=== PATIENT | female | born 1940 | race Caucasian/White ===

== ENCOUNTER → 2018-04-24 15:40 | Outpatient (CLI) | payer MEDICARE, OTHER, SELFPAY ==
--- NOTE | 2018-04-24 15:29 | DI.REPORT_ITS ---
SYMPTOM/DIAGNOSIS: YEARLY LT TKA LEG LENGTH: The left leg measures 86.6 cm The right leg measures 86.1 cm. The patient is status post left TKR. There are rather severe degenerative changes involving the right knee.
--- NOTE | 2018-04-24 15:45 | DI.REPORT_ITS ---
SYMPTOM/DIAGNOSIS: YEARLY LT TKA LEFT KNEE: A single upright lateral projection of the left knee reveals a TKR. The components of which are in good position, surrounding bone intact. There are some faint areas of calcification posterior to the knee which could lie within a Handy's cyst. The study is otherwise unremarkable.
--- NOTE | 2018-04-24 19:05 | DI.REPORT_ITS ---
SYMPTOM/DIAGNOSIS: EVAL LUMBAR SPINE FOR STENOSIS, DJD LUMBOSACRAL SPINE: No abnormality involving L1 through L3 is demonstrated. There is disc space narrowing, discogenic sclerosis and hypertrophic spurring involving L3 through S1. At L3-4 there is a 1.5 cm anterior listhesis of L3 on L4 which is associated with degenerative changes. Narrow discs are noted at L4-5 and L5-S1 where there are moderately severe hypertrophic changes as well. The posterior elements as visualized appear intact. The sacrum and sacroiliac joints are unremarkable save for SI joint DJD. SUMMARY: Severe degenerative changes involving the mid and lower lumbar spine as described above. There is 1.5 cm anterior listhesis of L3 on L4 is associated with disc space narrowing and hypertrophic bony changes and is presumed to be on the basis of degenerative disease. As noted above there is disc narrowing and end plate sclerosis at L4 and L5. Please see the above report.
== END ==
PROVIDERS: PCP Internal Medicine; Visit Provider Student in an Organized Health Care Education/Training Program
DX: M48.062 Spinal stenosis, lumbar region with neurogenic claudication (principal); M51.17 Intervertebral disc disorders with radiculopathy, lumbosacral region; M51.16 Intervertebral disc disorders with radiculopathy, lumbar region; M43.16 Spondylolisthesis, lumbar region; Z96.652 Presence of left artificial knee joint
CPT/HCPCS: 72100; 73560; 77073; 20610; 99214; J1040

== ENCOUNTER → 2018-05-01 01:02 | Outpatient (CLI) | payer MEDICARE, OTHER, SELFPAY ==
--- NOTE | 2018-05-01 15:45 | DI.REPORT_ITS ---
SYMPTOM/DIAGNOSIS: EVAL SPINAL STENOSIS, SPINAL STENOSIS OF LUMBAR REGION M48.062 LUMBOSACRAL SPINE MRI : 05/01 MRI examination of the lumbosacral spine was performed according to the usual protocol. Note is made of a mild T-11 anterior compression fracture which is new since the previous lumbar spine MR of 07/14/15. Note is also made of anterior spondylolisthesis or pseudo spondylolisthesis of L3 on L4 which is more marked than on the previous examination with a new superior end plate deformity of L4 noted. Conus medullaris appears intact. There are multi-level facet hypertrophic changes throughout the lumbar region. There is neural foraminal narrowing at L3-4 on the left and there is neural foraminal narrowing at L3-4, L4-5 and L5-S1 on the right. There is degenerative disc and mild disc bulge at L5-S1. Central canal appears patent. Mild disc bulge also present at L4-5. Spinal anal appears patent. There is moderate central canal spinal stenosis at L3-4 and there is moderate central canal spinal stenosis at L2-3. There is a degree of spinal stenosis at L3-4 appears less severe in comparison with the previous examination of 07/14/15. No change at the remaining lumbar levels. CONCLUSION: Multi-level neural foraminal stenosis and central canal stenosis at L2-3 and L3-4 as described above. Please see the above discussion of findings at the individual levels.
== END ==
PROVIDERS: PCP Internal Medicine; Visit Provider Student in an Organized Health Care Education/Training Program
DX: M48.062 Spinal stenosis, lumbar region with neurogenic claudication (principal)
CPT/HCPCS: 72148

== ENCOUNTER → 2018-05-02 17:42 | Outpatient (REF) | payer MEDICARE, OTHER, SELFPAY ==
[2018-05-02 21:13] LABS: Anion Gap 6.7 mmol/L (3-11); BUN 22 mg/dL (7-18); CO2 30.3 mmol/L (21.0-32.0); CREATININE 1.53 mg/dL (0.55-1.02); Calcium 8.6 mg/dL (8.5-10.1); Chloride 103 mmol/L (98-107); Cholesterol 251 mg/dL (50-200); Glucose 103 mg/dL (70-100); HDL Cholesterol 104 mg/dL (40-60); LDL CHOLESTEROL 129 mg/dL (<100); Potassium 4.4 mmol/L (3.5-5.1); Sodium 140 mmol/L (136-145); Triglyceride 95 mg/dL (30-150)
== END ==
LOC: NCHCN 17:42
PROVIDERS: PCP Internal Medicine; Visit Provider Internal Medicine
DX: I10 Essential (primary) hypertension (principal)
CPT/HCPCS: 80048; 80061; 83721

== ENCOUNTER → 2018-05-08 15:30 | Outpatient (REF) | payer MEDICARE, OTHER, SELFPAY ==
[2018-05-13 17:52] LABS: 6-monoacetylmorphine Not Detected ng/mL (Cutoff: 25); Amphetamines Negative ng/mL (Cutoff: 500); Barbiturates Negative ng/mL (Cutoff: 200); Benzodiazepines Negative ng/mL (Cutoff: 100); Buprenorphine Not Detected ng/mL (Cutoff: 5); Cocaine Negative ng/mL (Cutoff: 150); Codeine Not Detected ng/mL (Cutoff: 25); Comment Normal; Creatinine, U 19.8 mg/dL; Dihydrocodeine Present ng/mL (Cutoff: 25); EDDP Not Detected ng/mL (Cutoff: 25); Fentanyl Not Detected ng/mL (Cutoff: 2); Hydrocodone Present ng/mL (Cutoff: 25); Hydromorphone Not Detected ng/mL (Cutoff: 25); Hydromorphone-3-beta-glucuroni Not Detected ng/mL (Cutoff: 100); Meperidine Not Detected ng/mL (Cutoff: 25); Methadone Not Detected ng/mL (Cutoff: 25); Morphine Not Detected ng/mL (Cutoff: 25); N-desmethyltapentadol Not Detected ng/mL (Cutoff: 50); Naloxone Not Detected ng/mL (Cutoff: 25); Norbuprenorphine Not Detected ng/mL (Cutoff: 5); Norfentanyl Not Detected ng/mL (Cutoff: 2); Norhydrocodone Present ng/mL (Cutoff: 25); Normeperidine Not Detected ng/mL (Cutoff: 25); Noroxycodone Not Detected ng/mL (Cutoff: 25); Noroxymorphone Not Detected ng/mL (Cutoff: 25); O-desmethyltramadol Not Detected ng/mL (Cutoff: 25); Phencyclidine Negative ng/mL (Cutoff: 25); Propoxyphene Not Detected ng/mL (Cutoff: 25); Specific Gravity 1.003; Tapentadol Not Detected ng/mL (Cutoff: 25); Tetrahydrocannabinol Negative ng/mL (Cutoff: 50); Tramadol Not Detected ng/mL (Cutoff: 25); pH 7.4
== END ==
LOC: LBN 15:30
PROVIDERS: PCP Internal Medicine; Visit Provider Nurse Practitioner Family
DX: Z79.891 Long term (current) use of opiate analgesic (principal); M51.15 Intervertebral disc disorders with radiculopathy, thoracolumbar region
CPT/HCPCS: 80307; 80364

== ENCOUNTER 2018-05-15 02:45 | Outpatient (RCR) | payer MEDICARE, OTHER, SELFPAY | END 2018-05-17 02:45 | LOC: INF 02:45 | PROVIDERS: PCP Internal Medicine; Visit Provider Internal Medicine | DX: M81.0 Age-related osteoporosis without current pathological fracture (principal) ==

== ENCOUNTER 2018-05-24 02:30 | Outpatient (RCR) | payer MEDICARE, OTHER, SELFPAY ==
[2018-05-24] MEDS: Normal Saline Flush 10 ML SYR IVP (13:31)
== END 2018-06-16 23:59 | disposition home or self-care (01) ==
LOC: INF 02:30
PROVIDERS: PCP Internal Medicine; Visit Provider Internal Medicine
DX: M81.0 Age-related osteoporosis without current pathological fracture (principal)
CPT/HCPCS: 96365; J3489

== ENCOUNTER 2018-06-17 15:31 | Outpatient (CLI) | payer MEDICARE, OTHER, SELFPAY ==
--- NOTE | 2018-06-17 14:23 | DI.RAD_ITS ---
SYMPTOM/DIAGNOSIS: SCIATICA M54.30 LUMBOSACRAL SPINE: 06/17 Five views were obtained. There is moderate anterior compression fracture of T-11 vertebra with little interval change in appearance in comparison with previous lumbar MRI of 2017 This was also visible on plain films of 04/24/2018. T-9 compression fracture also appears to be present which was seen on Dexa scan of 2016. Note is again made of pseudo spondylolisthesis of L3 on L4 and of marked disc space narrowing of L3-4 , L4-5 and and L5-S1. CONCLUSION: No gross interval change in T-11 compression fracture.
== END 2018-06-17 15:51 ==
PROVIDERS: PCP Internal Medicine; Visit Provider Nurse Practitioner Family
DX: M54.30 Sciatica, unspecified side (principal); M48.54XD Collapsed vertebra, not elsewhere classified, thoracic region, subsequent encounter for fracture with routine healing; M51.36 Other intervertebral disc degeneration, lumbar region
CPT/HCPCS: 72110

== ENCOUNTER 2018-07-04 09:50 | Outpatient (CLI) | payer MEDICARE, OTHER, SELFPAY ==
--- NOTE | 2018-07-04 06:00 | DI.RAD_ITS ---
SYMPTOMS/DIAGNOSIS: LUMBAR RADICULOPATHY, LUMBAR EPIDURAL STEROID INJECTION PAIN CLINIC: Fluoroscopy Time: 25.8 sec Images submitted from the pain clinic demonstrate needle positioning over the right paramedian position over the mid body on the frontal projection and mid sacrum on the lateral image in conjunction with epidural steroid injection carried out by Dr. Hidalgo. Please see the procedure report for further information.
[2018-07-04 10:08] VITALS: BP 137/59; PULSE 62; RESP 18; TEMP 36.3; O2SAT 95
--- NOTE | 2018-07-04 10:48 | PDOC.PAIN_ITS ---
Pain Clinic Procedure Note Current Active Problems Problem Status Onset Lumbar radiculopathy Acute CAUDAL EPIDURAL STEROID WITH CATHETER INJECTION PROCEDURE NOTE COMMENTS: Caudal approach used as she has has previous lumbar spine surgery. CLEMENT BOURNE has been referred to the [facility] for lumbar epidural steroid injection. Patient was greeted by the nurse who verified patients name and . Patient was then taken to the fluoroscopy suite. Patient was interviewed and the medical record reviewed. There were no medical , pharmacologic, radiographic, or other structural contraindications to attempting fluoroscopically guided lumbar epidural steroid injection. Risks and expected side effects as well as potential benefits of the procedure were reviewed and voiced concerns addressed. The patient consent form was signed and witnessed. Standard time-out procedure was performed. Patient was placed in the prone position on the fluoroscopy table and automated blood pressure cuff and pulse oximeter applied. The skin entry point for entering/approaching the epidural space by a sacral hiatus and marked. Following thorough chlorhexadine preparation of the skin and draping and 1% lidocaine infiltration of the skin entry point and subcutaneous tissues, a 17 gauge Touhy needle was placed under fluoroscopic guidance and with loss of resistance technique into the epidural space. Needle tip placement and depth were aided and confirmed by fluoroscopy. There was no paresthesia or return of blood or CSF through the needle. An Arrow cath was thread to the L4-L5 interspace and 1 cc's of Omnipaque 240 was injected with clear epidural spread confirmed with fluoroscopy. 80mg depomedrol was injected. There was not any unusual discomfort expressed. Vital signs were stable throughout the procedure and were as recorded in nursing records. Follow up plans and appointments were discussed.Post procedure instruction was given as documented in nursing records and having met discharge criteria and was discharged from the [facility]. COMMENTS: She can have this procedure completed up to 3 times per 12 months if it is found to be effective. Justus Hidalgo DO, MPH [facility] - Subspecialty Board Certification in Pain Medicine
[2018-07-04 10:52] VITALS: BP 153/76; PULSE 66; RESP 20; O2SAT 95
[2018-07-04] MEDS: Omnipaque 240 MG/ML 50 ML BTL IJ (10:58)
[2018-07-04] MEDS: methylPREDNISolone ACETATE 80 MG/ML VIAL IJ (10:59)
== END 2018-07-04 10:10 ==
PROVIDERS: PCP Internal Medicine; Visit Provider Preventive Medicine Occupational Medicine
DX: M54.16 Radiculopathy, lumbar region (principal)
CPT/HCPCS: 62323; 72100; J1040; Q9967

== ENCOUNTER 2018-08-21 13:21 | Outpatient (CLI) | payer MEDICARE, OTHER, SELFPAY | END 2018-08-21 13:41 | PROVIDERS: PCP Internal Medicine; Referring Provider Internal Medicine; Visit Provider Student in an Organized Health Care Education/Training Program | DX: T84.84XA Pain due to internal orthopedic prosthetic devices, implants and grafts, initial encounter (principal); Z96.652 Presence of left artificial knee joint; Z53.8 Procedure and treatment not carried out for other reasons; M48.061 Spinal stenosis, lumbar region without neurogenic claudication; M17.11 Unilateral primary osteoarthritis, right knee; I12.9 Hypertensive chronic kidney disease with stage 1 through stage 4 chronic kidney disease, or unspecified chronic kidney disease; N18.3 Chronic kidney disease, stage 3 (moderate) | CPT/HCPCS: 20610; 73562; 99214; J1040 ==

== ENCOUNTER 2018-10-02 13:46 | Outpatient (CLI) | payer MEDICARE, OTHER, SELFPAY ==
--- NOTE | 2018-10-02 13:38 | DI.RAD_ITS ---
SYMPTOMS/DIAGNOSIS: S/P TKA RIGHT KNEE: The wounds appear osteopenic. There is moderate narrowing of the medial femorotibial joint space. Chondrocalcinosis is seen. There is mild periarticular spurrnig, greatest medially. There is mild spurring of the patellofemoral joint. No joint effusion is visible. IMPRESSION: Moderate degenerative changes, greatest of the medial femorotibial joint. Chondrocalcinosis. LEFT KNEE: Comparison is made with April,. A left total knee prosthesis is again noted. No abnormal bony lucencies are seen. Calcifications are again noted in the posterior soft tissues.
== END 2018-10-02 14:06 ==
PROVIDERS: PCP Internal Medicine; Referring Provider Internal Medicine; Visit Provider Student in an Organized Health Care Education/Training Program
DX: T84.84XA Pain due to internal orthopedic prosthetic devices, implants and grafts, initial encounter (principal); Z96.652 Presence of left artificial knee joint; M25.561 Pain in right knee; M17.11 Unilateral primary osteoarthritis, right knee; M85.88 Other specified disorders of bone density and structure, other site; M70.52 Other bursitis of knee, left knee; I12.9 Hypertensive chronic kidney disease with stage 1 through stage 4 chronic kidney disease, or unspecified chronic kidney disease; N18.3 Chronic kidney disease, stage 3 (moderate)
CPT/HCPCS: 20610; 73562; 99213; 73560; J1030

== ENCOUNTER → 2018-11-06 13:54 | Outpatient (BNVA) | payer MEDICARE, OTHER, SELFPAY | PROVIDERS: PCP Internal Medicine; Referring Provider Internal Medicine; Visit Provider Student in an Organized Health Care Education/Training Program | DX: M17.12 Unilateral primary osteoarthritis, left knee; M06.9 Rheumatoid arthritis, unspecified; I12.9 Hypertensive chronic kidney disease with stage 1 through stage 4 chronic kidney disease, or unspecified chronic kidney disease; N18.3 Chronic kidney disease, stage 3 (moderate) | CPT/HCPCS: 99213 ==

== ENCOUNTER 2018-11-12 13:07 | Outpatient (CLI) | payer MEDICARE, OTHER, SELFPAY ==
--- NOTE | 2018-11-12 06:00 | DI.RAD_ITS ---
SYMPTOMS/DIAGNOSIS: LUMBAR SPONDYLOSIS PAIN CLINIC LUMBAR SPINE: Fluoroscopy Time: 50.55 sec Fluoroscopy is utilized by Dr. Hidalgo during the performance of a lumbar medial branch block. Please refer to the procedure report for complete details.
[2018-11-12 13:25] VITALS: BP 103/68; PULSE 64; RESP 22; TEMP 36.1; O2SAT 94
--- NOTE | 2018-11-12 14:24 | PDOC.PAIN ---
Pain Clinic Procedure Note Current Active Problems Problem Status Onset Lumbosacral spondylosis without myelopathy Acute Lumbar/Sacral Medial Branch Blocks CLEMENT BOURNE has been referred to the [facility] for lumbar/sacral medial branch blocks. COMMENTS: She was seen in our clinic on 10/29/18 Patient was interviewed and the medical record reviewed. There were no medical, pharmacologic, radiographic or other structural contraindications to attempting fluoroscopically guided local anesthetic lumbar/sacral medial branch blocks. Risks and expected side effects as well as potential benefit of the procedure were reviewed and voiced concerns addressed. The printed consent form was signed and witnessed. Standard time-out procedure was performed. Patient was placed in the prone position on the fluoroscopy table and automated blood pressure cuff and pulse oximeter applied. The skin entry points for approaching the anatomic target points of the segmental medial branches of bilateral L3-L5DR were identified with anfluoroscopy and marked. Following thorough Chlorhexadine preparation of the skin and draping a 25 gauge 3.5 spinal needle was placed under fluoroscopic guidance down on to the target point for each respective segmental medial branch.Position was confirmed in A/P, oblique and lateral views with 0.25ml of omnipaque 240. At this point 0.5 cc of l 0.5% Bupivacaine was injected to each segmental nerve. Vital signs were stable throughout the procedure and were as recorded in the docflowsheet by the nursing staff. Follow up plans and appointments were discussed and was instructed to keep careful note of how the usual pain was modified by these injections. Specifically was asked to keep a pain diary for the next 24 hours using a numeric pain scale of 0-10 and report these results at the follow-up visit. Post procedure instruction was given as documented in the nursing documentation and having met discharge criteria. Patient was discharged from the [facility]. Based on the medial branches blocked today, if the patient has adequate relief and we are able to proceed to radiofrequency ablation, the treatment should result in the denervation of the bilateral L4-L5 and L5-S1 FACET JOINTS. We would expect to denervate a total of 4 facets during the radiofrequency ablation. COMMENTS:She will call back with her 1-4 hour post-procedure low back pain scores. CC: Jefry Boyer
[2018-11-12 14:46] VITALS: BP 121/63; PULSE 78; RESP 14; O2SAT 95
[2018-11-12] MEDS: Omnipaque 240 MG/ML 50 ML BTL IJ (14:48)
[2018-11-12] MEDS: Bupivacaine 0.5% Pres-Free 30 ML VIAL IJ (14:48)
== END 2018-11-12 13:27 ==
PROVIDERS: PCP Internal Medicine; Visit Provider Preventive Medicine Occupational Medicine
DX: M47.817 Spondylosis without myelopathy or radiculopathy, lumbosacral region (principal)
CPT/HCPCS: 64493; 64494; 72100; Q9967

== ENCOUNTER 2018-11-20 13:18 | Outpatient (CLI) | payer MEDICARE, OTHER, SELFPAY ==
--- NOTE | 2018-11-20 06:00 | DI.RAD_ITS ---
SYMPTOMS/DIAGNOSIS: LUMBAR SPONDYLOSIS PAIN CLINIC: Fluoroscopy Time: 52.2 sec Fluoroscopy was utilized by Dr. Hidalgo during the performance of a lumbar medial branch block. Please refer to the procedure report for complete details.
[2018-11-20 13:30] VITALS: BP 135/71; PULSE 70; RESP 16; TEMP 36.8; O2SAT 99
--- NOTE | 2018-11-20 14:02 | PDOC.PAIN ---
Pain Clinic Procedure Note Current Active Problems Problem Status Onset Lumbosacral spondylosis without myelopathy Acute Lumbar/Sacral Medial Branch Blocks #2 at Bilateral L3-L5DR CLEMENT BOURNE has been referred to the [facility] for lumbar/sacral medial branch blocks. COMMENTS: She did very well with her first set of blocks. Patient was interviewed and the medical record reviewed. There were no medical, pharmacologic, radiographic or other structural contraindications to attempting fluoroscopically guided local anesthetic lumbar/sacral medial branch blocks. Risks and expected side effects as well as potential benefit of the procedure were reviewed and voiced concerns addressed. The printed consent form was signed and witnessed. Standard time-out procedure was performed. Patient was placed in the prone position on the fluoroscopy table and automated blood pressure cuff and pulse oximeter applied. The skin entry points for approaching the anatomic target points of the segmental medial branches of bilateral L3-L5DR were identified with anfluoroscopy and marked. Following thorough Chlorhexadine preparation of the skin and draping and 1% lidocaine infiltration of the skin entry points and subcutaneous tissues, a 25 gauge 3.5 spinal needle was placed under fluoroscopic guidance down on to the target point for each respective segmental medial branch.Position was confirmed in A/P, oblique and lateral views with 0.25ml of omnipaque 240. At this point 0.5cc of 2% Lidocaine was injected at each segmental nerve. The needles were removed without difficulty. Vital signs were stable throughout the procedure and were as recorded in the docflowsheet by the nursing staff. Follow up plans and appointments were discussed and was instructed to keep careful note of how the usual pain was modified by these injections. Specifically was asked to keep a pain diary for the next 24 hours using a numeric pain scale of 0-10 and report these results at the follow-up visit. Post procedure instruction was given as documented in the nursing documentation and having met discharge criteria. Patient was discharged from the [facility]. Based on the medial branches blocked today, if the patient has adequate relief and we are able to proceed to radiofrequency ablation, the treatment should result in the denervation of the bilateral L4-L5 and L5-S1 FACET JOINTS. We would expect to denervate a total of 4 facets during the radiofrequency ablation. COMMENTS:She will call back with her 1-4 hour post-procedure low back pain levels. CC: Jefry Boyer
[2018-11-20] MEDS: Lidocaine 2% Pres-Free 5 ML VIAL IJ (14:27)
[2018-11-20] MEDS: Omnipaque 240 MG/ML 50 ML BTL IJ (14:28)
[2018-11-20 14:29] VITALS: BP 146/69; PULSE 72; RESP 20; O2SAT 96
== END 2018-11-20 13:38 ==
PROVIDERS: PCP Internal Medicine; Visit Provider Preventive Medicine Occupational Medicine
DX: M47.817 Spondylosis without myelopathy or radiculopathy, lumbosacral region (principal)
CPT/HCPCS: 64493; 64494; 72100; Q9967

== ENCOUNTER → 2018-12-04 13:39 | Outpatient (BNVA) | payer MEDICARE, OTHER, SELFPAY | PROVIDERS: PCP Internal Medicine; Referring Provider Internal Medicine; Visit Provider Student in an Organized Health Care Education/Training Program | DX: M54.9 Dorsalgia, unspecified; R52 Pain, unspecified | CPT/HCPCS: 99212 ==

== ENCOUNTER 2018-12-12 07:42 | Outpatient (CLI) | payer MEDICARE, OTHER, SELFPAY ==
[2018-12-12 07:54] VITALS: BP 135/74; PULSE 66; RESP 22; TEMP 36.2; O2SAT 98
[2018-12-12] MEDS: fentaNYL 100 MCG/2 ML VIAL IVP (08:29)
[2018-12-12] MEDS: Lactated Ringers 1,000 ML 80 ML IV (08:29)
[2018-12-12] MEDS: Midazolam 2 MG/2 ML VIAL IVP (08:29)
[2018-12-12 09:03] VITALS: BP 146/74; PULSE 76; RESP 13; O2SAT 100
--- NOTE | 2018-12-12 09:08 | DI.RAD_ITS ---
SYMPTOM/DIAGNOSIS: LUMBAR SPONDYLOSIS, LUMBAR RADIOFREQUENCY ABLATION C-ARM: Fluoroscopy Time: 72.3 sec, 15.66 mGy. Images submitted from the pain clinic needle positioning over the lateral portion of the right L 4 and L 5 levels in conjunction with a radiofrequency ablation. Please see Dr. Hidalgo's procedure report for further information.
--- NOTE | 2018-12-12 09:10 | PDOC.PAIN_ITS ---
Pain Clinic Procedure Note Current Active Problems Problem Status Onset Lumbosacral spondylosis without myelopathy Acute LUMBAR/SACRAL MEDIAL BRANCH RADIOFREQUENCY WITH THE COOLIEF MACHINE CLEMENT BOURNE has been referred to the [facility] for radiofrequency treatment of chronic axial back pain. CLEMENT has had long standing back pain thought to be facet joint generated and which has been refractory to other therapies. Local anesthetic medial branch blocks or intra- articular facet joint injections resulted in CLEMENT reporting reduction of the usual axial component of pain for at least the duration of the local anesthetic effect. COMMENTS:She did very well with her LMBBs Patient was interviewed and the medical record reviewed. There were no medical, pharmacologic, radiographic or other structural contraindications to attempting fluoroscopically guided radiofrequency treatment. Risks and expected side effects as well as potential benefit of the procedure were reviewed and voiced concerns addressed. The printed consent form was signed and witnessed. Standard time-out procedure was performed. Patient was placed in the prone position on the fluoroscopy table and automated blood pressure cuff and pulse oximeter applied. The skin entry points for approaching the anatomic target points of the segmental medial branches of bilateral L3-L5DR were identified with fluoroscopy and marked. Following thorough Chlorhexadine preparation of the skin and draping and 1% lidocaine infiltration of the skin entry points and subcutaneous tissues, a single 18 guage curved 10 cm 10mm active tip radiofrequency cannula was placed under fluoroscopic guidance along or across the anatomic course of each respective segmental medial branch. Each placement was stimulated at 50Hz and les then 0.5V for medial branch sensory localization and the at 2Hz and up to 3 times the sensory voltage without any evidence of distal myotomal stimulation. 1cc of 1% ;idocaine was injected at each site. At each placement a continuous mode radiofrequency treatment was done at 80 degrees C for 90secs. This radiofrequency treatment should result in the denervation of the bilateral L4-L5 and L5-S1 FACET JOINTS.~ A total of 4 facets were expected to be denervated from today's treatment. Vital signs were stable throughout the procedure and were as recorded in the docflowsheet by the nursing staff. If given, dosages of intravenous drugs for anxiolysis and analgesia were documented in the Medication Administration Record (MAR). Follow up plans and appointments were discussed. Post procedure instruction was given as documented in the nursing documentation and having met discharge criteria, CLEMENT was discharged from the [facility]. COMMENTS: If this procedure gives her at least 6 months of pain relief, it can be repeated when needed. CC: Jefry Boyer
[2018-12-12] MEDS: methylPREDNISolone ACETATE 40 MG/ML VIAL IJ (09:23)
[2018-12-12] MEDS: Lidocaine 2% Pres-Free 5 ML VIAL IJ (09:23)
[2018-12-12] MEDS: Bupivacaine 0.5% Pres-Free 10 ML VIAL IJ (09:24)
== END 2018-12-13 11:25 | disposition home or self-care (01) ==
LOC: PC 07:44
PROVIDERS: PCP Internal Medicine; Visit Provider Preventive Medicine Occupational Medicine
DX: M47.817 Spondylosis without myelopathy or radiculopathy, lumbosacral region (principal); G89.29 Other chronic pain
CPT/HCPCS: 64636 ×2; 64635 ×2; 72100; J1030; J2250; J3010

== ENCOUNTER 2019-01-16 16:12 | Outpatient (REF) | payer MEDICARE, OTHER, SELFPAY ==
[2019-01-16 21:10] LABS: Potassium 4.6 mmol/L (3.5-5.1)
== END 2019-01-16 16:32 ==
LOC: NCHCN 16:12
PROVIDERS: PCP Internal Medicine; Visit Provider Internal Medicine
DX: M79.10 Myalgia, unspecified site (principal); F41.8 Other specified anxiety disorders; R53.83 Other fatigue; L57.0 Actinic keratosis; Z86.39 Personal history of other endocrine, nutritional and metabolic disease
CPT/HCPCS: 84132

== ENCOUNTER 2019-01-19 11:43 | Emergency (ER) | payer MEDICARE, OTHER, SELFPAY ==
--- NOTE | 2019-01-19 11:55 | W.ED.GENAD ---
Discharge Plan Disposition Patient Disposition: HOME Condition: Fair Discharge Details Chief Complaint: Orthopedic Clinical Impression: Hematoma, Multiple contusions Primary Care Provider: Jefry Boyer ED Provider: Elly Dior Home Meds and New Rx's Prescriptions: Continued prednisone 5 MG tablet 2 tab PO DAILY RF: 0 omeprazole 20 MG capsule,delayed release(DR/EC) 20 mg PO DAILY RF: 0 ergocalciferol (vitamin D2) [Vitamin D2] 50,000 UNIT capsule 50,000 unit PO weekly RF: 0 fluticasone propionate 16 GM spray,suspension 2 spry NS DAILY RF: 0 Narcan 4 MG spray,non-aerosol 4 mg NS PRN PRNQty: 2 RF: 0 Cane Qty: 1 RF: 0 potassium chloride 10 MEQ capsule, extended release 10 meq PO DAILY RF: 0 acetaminophen [Tylenol Extra Strength] 500 MG tablet 500 mg PO Q4H PRN RF: 0 magnesium oxide 250 MG tablet 250 mg PO DAILY RF: 0 hydrocodone-acetaminophen 1 EACH tablet 1 tab-cap PO Q4H PRN MDD 5 RF: 0 gabapentin 300 MG capsule 300 mg PO BID RF: 0 paroxetine HCl 40 MG tablet 40 mg PO DAILY RF: 0 Metoprolol Succinate 25 MG TAB.ER.24H 50 mg PO DAILY RF: 0 spironolactone 25 MG tablet 25 mg PO DAILY RF: 0 aspirin 81 mg Tablet,Chewable 81 mg PO DAILY RF: 0 Discharge Instructions Instructions: Contusion in Adults (ED), Hematoma (ED) Additional Instructions: Encourage rest, ice, elevation. Tylenol as needed for discomfort. Please follow-up with primary care this week for reevaluation. Please continue to use Bulmaro wrap to your right lower extremity to help with swelling. If you develop redness, warmth, increased pain, fever/chills, pain in the back of your leg, shortness of breath, chest pain or other new/worsening symptoms please seek care urgently once again. Referrals: Jefry Boyer MD [Primary Care Provider] - Discharge Data Discharge Date/Time-TO BE ENTERED AT DEPARTURE: 01/19/19 15:11 Medical Decision Making Patient is a 78-year-old female with history of arthralgia, bursitis, lumbosacral spondylosis, spinal stenosis, OA, anxiety, alcohol abuse, breast cancer, hypertension, GERD, CKD. She is brought in today by her for evaluation of her bilateral knees. She reports that she tripped yesterday while ambulating at the house and fell landing on both of her knees. She denies other injuries. No headache, visual change. No nausea vomiting. No chest pain or shortness of breath. Denies any neck or back pain. Pain does not radiate. She reports minimal pain and 0 right now. She does endorse some discomfort particular with ambulation. She is noted ecchymosis to bilateral anterior knees, right greater than left with swelling along the anterior lateral right tibia. No erythema or warmth. Calves are soft and nontender. She has a 2+ distal pulses. Patient reports she is been ambulating about the house and is been quite busy today. States that the swelling overall has diminished. I have low suspicion for fracture but given her concern with the ecchymosis, will obtain imaging to evaluate for possible bony abnormality. Patient does have a well-healed incision on the left knee consistent with her history of total knee replacement. She has chronic swelling of the bilateral lower extremities particularly the right ankle which patient reports unchanged. No pain with palpation about the ankle, she reports her ankle is chronic and unchanged since the fall. No evidence of compartment syndrome at this time. XR reviewed by myself with no acute abnormality noted. Do not see any lucency around the implant on the left knee. OA noted on the right. No acute abnormality. seen. FINDINGS left: Prior knee arthroplasty. No acute fracture. No abnormal fluid collection. IMPRESSION: No evidence of acute bony abnormality. FINDINGS right: Inhomogeneity most likely representing diffuse osteopenia. No acute fracture. Degenerative arthritis with joint space narrowing and mild osteophytic spurring. No evidence of significant joint effusion. IMPRESSION: No evidence of acute bony normality. Discussed these findigns with the patient and her . There was a delay in the patient receiving her imaging secondary to influx of patients. During this time, she has been ambulatory, has been comfortable with no change in symptoms. She will be fitted with bulmaro wrap by nursing staff for the swelling and hematoma on the left anterior left. We discussed signs of infection and other new/worsening symptoms that should prompt urgent eval again. She will rest, ice, elevate. Will f/u with PCP in one week for reevaluation. All of her questions and concerns were addressed, she isin agreement with this plan HPI General Mode of arrival: wheelchair. Date/Time Provider Initiated Documentation: 01/19/19 11:54. Limitations to Documentation: no limitations. Information obtained by: patient, family and RN notes reviewed. History of Present Illness 78 year old F presents to the emergency department with the chief complaint of bilateral knee trauma, described as mild, Quality is described as aching, and is localized to the left, right and lower extremity. Patient reports no radiation. Patient started experiencing this day(s) (1) and it has been constant. Immobilization improves symptom(s), Movement worsens symptoms (worse with ambulation) . Patient notes no other symptoms.. Patient did receive the following treatments prior to arrival, other (patient on chronic pain medication) Related Data Home Medications Medication Instructions Recorded Confirmed omeprazole 20 mg PO DAILY tab-cap 09/30/13 12/12/18 prednisone 2 tab PO DAILY tab-cap 09/30/13 12/12/18 ergocalciferol (vitamin D2) 50,000 unit PO weekly 11/27/16 01/19/19 [Vitamin D2] fluticasone propionate 2 spry NS DAILY spray 11/27/16 01/19/19 Narcan 4 mg NS PRN PRN #2 inhn 06/10/17 01/19/19 spironolactone 25 mg PO DAILY tab 06/11/17 01/19/19 acetaminophen [Tylenol Extra 500 mg PO Q4H PRN 04/26/18 01/19/19 Strength] magnesium oxide 250 mg PO DAILY 04/26/18 01/19/19 potassium chloride 10 meq PO DAILY 04/26/18 12/12/18 Metoprolol Succinate 50 mg PO DAILY tab-cap 05/06/18 01/19/19 gabapentin 300 mg PO BID 05/06/18 01/19/19 hydrocodone-acetaminophen 1 tab-cap PO Q4H PRN tab-cap MDD 5 05/06/18 01/19/19 paroxetine HCl 40 mg PO DAILY 05/06/18 01/19/19 aspirin 81 mg PO DAILY 11/12/18 01/19/19 Previous Rx's Medication Instructions Recorded spironolactone 25 mg PO DAILY tab 06/11/17 Allergies Allergy/AdvReac Type Severity Reaction Status Date / Time latex Allergy Severe SWELLING/RA Verified 01/19/19 12:03 SH bupropion Allergy Unknown Verified 01/19/19 12:03 sertraline HCl [From Zoloft] Allergy Unknown Verified 01/19/19 12:03 tramadol Allergy Unknown Verified 01/19/19 12:03 alendronate sodium AdvReac Intermediate Verified 01/19/19 12:03 Sulfa (Sulfonamide AdvReac Intermediate STOMACH Verified 01/19/19 12:03 Antibiotics) UPSET citalopram hydrobromide AdvReac Mild Verified 01/19/19 12:03 [From Celexa] flunisolide AdvReac Mild Verified 01/19/19 12:03 sulfasalazine AdvReac Mild Verified 01/19/19 12:03 [From Azulfidine] DAIRY PRODUCT AdvReac Intermediate STOMACH Uncoded 01/19/19 12:03 UPSET Review of Systems Constitutional Reports as per HPI, Denies chills, Denies fever(s), Denies headache(s) and Denies weakness ENT Denies headache(s) Cardiovascular Reports as per HPI, Denies chest pain, Denies chest pain at rest, Denies chest pain with activity and Denies dyspnea Respiratory Reports as per HPI, Denies cough and Denies dyspnea Musculoskeletal Reports as per HPI and Denies tingling Integumentary/Breasts Reports as per HPI (ecchymosis bilateral lower extremities) Neurologic Reports as per HPI, Denies headache(s), Denies tingling, Denies paresthesias and Denies weakness [facility] Medical History Actinic keratoses Alcohol abuse, in remission Atrial paroxysmal tachycardia BREAST CANCER BREAST IMPLANTS Bilateral cataracts Bilateral leg edema CKD (chronic kidney disease), stage III Calcium pyrophosphate deposition disease DENTURES Depressive disorder Fatigue Frequent PVCs GERD (gastroesophageal reflux disease) Glossodynia HTN (hypertension) HX: breast cancer History of colitis Hot flashes Hypomagnesemia IBS (irritable colon syndrome) Insomnia 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 Brother No problems noted. Social History Smoking/Tobacco Use Status: Never Alcohol Intake: current Alcohol Intake frequency: 0-2 drinks per day Alcohol type: wine Drug use: Never Substance use type: does not use Do you feel safe in your relationship?: Yes Exam Const General: cooperative, healthy appearing, comfortable, no acute distress, well developed and well groomed Nutritional Appearance: well nourished, overweight and edematous (bilateral lower extremities) Orientation: alert and awake [facility] Head: normal to inspection, no palpable skull fracture, normocephalic and atraumatic Ears: hearing grossly normal bilaterally Face and sinus: normal facial exam Resp Effort & Inspection: normal respiratory effort, able to speak in complete sentences and no respiratory distress Auscultation: clear to auscultation bilaterally Cardio Rate: regular rate Rhythm: regular rhythm Heart Sounds: S1 normal and S2 normal Skin General skin exam: ecchymosis (bilateral anterior knees, right anterior tibia) Neuro General: alert and awake Cognition: normal cognition Speech: speech normal Gait: gait abnormal (patient brought in via wheelchair) Motor: muscle tone normal throughout Sensory Exam: no sensory deficits noted Extrem General: full ROM, normal capillary refill, no joint enlargement noted (chronic swelling bilateral ankles R>L), no calf tenderness and edema Laterality: bilateral (LE, noted to have darkening and discoloration of anterior tibia, appears chronic) Psych Appearance: grossly normal and well kempt Mental Status: mental status grossly normal Speech and Movement: speech and movement normal
[2019-01-19 11:57] VITALS: BP 113/66; PULSE 72; RESP 16; TEMP 36.1; O2SAT 98
--- NOTE | 2019-01-19 12:02 | DI.RAD_ITS ---
SYMPTOM/DIAGNOSIS: FELL, PAIN RIGHT KNEE: Three views were obtained. The bones of the knee are demineralized. Note is made of chondrocalcinosis. No evidence of acute fracture. LEFT KNEE: Three views were obtained. There is a total knee joint replacement in position. The components appear well seated. No other significant bony abnormality is seen.
--- NOTE | 2019-01-19 12:10 | ED.GENADUL_ITS ---
Discharge Plan Disposition Patient Disposition: HOME Condition: Fair Discharge Details Chief Complaint: Orthopedic Clinical Impression: Hematoma, Multiple contusions Primary Care Provider: Jefry Boyer ED Provider: Elly Dior Home Meds and New Rx's Prescriptions: Continued prednisone 5 MG tablet 2 tab PO DAILY RF: 0 omeprazole 20 MG capsule,delayed release(DR/EC) 20 mg PO DAILY RF: 0 ergocalciferol (vitamin D2) [Vitamin D2] 50,000 UNIT capsule 50,000 unit PO weekly RF: 0 fluticasone propionate 16 GM spray,suspension 2 spry NS DAILY RF: 0 Narcan 4 MG spray,non-aerosol 4 mg NS PRN PRNQty: 2 RF: 0 Cane Qty: 1 RF: 0 potassium chloride 10 MEQ capsule, extended release 10 meq PO DAILY RF: 0 acetaminophen [Tylenol Extra Strength] 500 MG tablet 500 mg PO Q4H PRN RF: 0 magnesium oxide 250 MG tablet 250 mg PO DAILY RF: 0 hydrocodone-acetaminophen 1 EACH tablet 1 tab-cap PO Q4H PRN MDD 5 RF: 0 gabapentin 300 MG capsule 300 mg PO BID RF: 0 paroxetine HCl 40 MG tablet 40 mg PO DAILY RF: 0 Metoprolol Succinate 25 MG TAB.ER.24H 50 mg PO DAILY RF: 0 spironolactone 25 MG tablet 25 mg PO DAILY RF: 0 aspirin 81 mg Tablet,Chewable 81 mg PO DAILY RF: 0 Discharge Instructions Instructions: Contusion in Adults (ED), Hematoma (ED) Additional Instructions: Encourage rest, ice, elevation. Tylenol as needed for discomfort. Please follow-up with primary care this week for reevaluation. Please continue to use Bulmaro wrap to your right lower extremity to help with swelling. If you develop redness, warmth, increased pain, fever/chills, pain in the back of your leg, shortness of breath, chest pain or other new/worsening symptoms please seek care urgently once again. Referrals: Jefry Boyer MD [Primary Care Provider] - Discharge Data Discharge Date/Time-TO BE ENTERED AT DEPARTURE: 01/19/19 15:11 Medical Decision Making Patient is a 78-year-old female with history of arthralgia, bursitis, lum bosacral spondylosis, spinal stenosis, OA, anxiety, alcohol abuse, breast cancer, hypertension, GERD, CKD. She is brought in today by her for evaluation of her bilateral knees. She reports that she tripped yesterday while ambulating at the house and fell landing on both of her knees. She denies other injuries. No headache, visual change. No nausea vomiting. No chest pain or shortness of breath. Denies any neck or back pain. Pain does not radiate. She reports minimal pain and 0 right now. She does endorse some discomfort particular with ambulation. She is noted ecchymosis to bilateral anterior knees, right greater than left with swelling along the anterior lateral right tibia. No erythema or warmth. Calves are soft and nontender. She has a 2+ distal pulses. Patient reports she is been ambulating about the house and is been quite busy today. States that the swelling overall has diminished. I have low suspicion for fracture but given her concern with the ecchymosis, will obtain imaging to evaluate for possible bony abnormality. Patient does have a well-healed incision on the left knee consistent with her history of total knee replacement. She has chronic swelling of the bilateral lower extremities particularly the right ankle which patient reports unchanged. No pain with palpation about the ankle, she reports her ankle is chronic and unchanged since the fall. No evidence of compartment syndrome at this time. XR reviewed by myself with no acute abnormality noted. Do not see any lucency around the implant on the left knee. OA noted on the right. No acute abnormality. seen. FINDINGS left: Prior knee arthroplasty. No acute fracture. No abnormal fluid collection. IMPRESSION: No evidence of acute bony abnormality. FINDINGS right: Inhomogeneity most likely representing diffuse osteopenia. No acute fracture. Degenerative arthritis with joint space narrowing and mild osteophytic spurring. No evidence of significant joint effusion. IMPRESSION: No evidence of acute bony normality. Discussed these findigns with the patient and her . There was a delay in the patient receiving her imaging secondary to influx of patients. During this time, she has been ambulatory, has been comfortable with no change in symptoms. She will be fitted with bulmaro wrap by nursing staff for the swelling and hematoma on the left anterior left. We discussed signs of infection and other new/worsening symptoms that should prompt urgent eval again. She will rest, ice, elevate. Will f/u with PCP in one week for reevaluation. All of her questions and concerns were addressed, she isin agreement with this plan HPI General Mode of arrival: wheelchair . Date/Time Provider Initiated Documentation: 01/19/19 11:54 . Limitations to Documentation: no limitations . Information obtained by: patient, family and RN notes reviewed . History of Present Illness 78 year old F presents to the emergency department with the chief complaint of bilateral knee trauma, described as mild, Quality is described as aching, and is localized to the left, right and lower extremity. Patient reports no radiation. Patient started experiencing this day(s) (1) and it has been constant. Immobilization improves symptom(s), Movement worsens symptoms (worse with ambulation) . Patient notes no other symptoms.. Patient did receive the following treatments prior to arrival, other (patient on chronic pain medication) Related Data Home Medications Medication Instructions Recorded Confirmed omeprazole 20 mg PO DAILY tab-cap 09/30/13 12/12/18 prednisone 2 tab PO DAILY tab-cap 09/30/13 12/12/18 ergocalciferol (vitamin D2) 50,000 unit PO weekly 11/27/16 01/19/19 [Vitamin D2] fluticasone propionate 2 spry NS DAILY spray 11/27/16 01/19/19 Narcan 4 mg NS PRN PRN #2 inhn 06/10/17 01/19/19 spironolactone 25 mg PO DAILY tab 06/11/17 01/19/19 acetaminophen [Tylenol Extra 500 mg PO Q4H PRN 04/26/18 01/19/19 Strength] magnesium oxide 250 mg PO DAILY 04/26/18 01/19/19 potassium chloride 10 meq PO DAILY 04/26/18 12/12/18 Metoprolol Succinate 50 mg PO DAILY tab-cap 05/06/18 01/19/19 gabapentin 300 mg PO BID 05/06/18 01/19/19 hydrocodone-acetaminophen 1 tab-cap PO Q4H PRN tab-cap MDD 5 05/06/18 01/19/19 paroxetine HCl 40 mg PO DAILY 05/06/18 01/19/19 aspirin 81 mg PO DAILY 11/12/18 01/19/19 Previous Rx's Medication Instructions Recorded spironolactone 25 mg PO DAILY tab 06/11/17 Allergies Allergy/AdvReac Type Severity Reaction Status Date / Time latex Allergy Severe SWELLING/RA Verified 01/19/19 12:03 SH bupropion Allergy Unknown Verified 01/19/19 12:03 sertraline HCl [From Zoloft] Allergy Unknown Verified 01/19/19 12:03 tramadol Allergy Unknown Verified 01/19/19 12:03 alendronate sodium AdvReac Intermediate Verified 01/19/19 12:03 Sulfa (Sulfonamide AdvReac Intermediate STOMACH Verified 01/19/19 12:03 Antibiotics) UPSET citalopram hydrobromide AdvReac Mild Verified 01/19/19 12:03 [From Celexa] flunisolide AdvReac Mild Verified 01/19/19 12:03 sulfasalazine AdvReac Mild Verified 01/19/19 12:03 [From Azulfidine] DAIRY PRODUCT AdvReac Intermediate STOMACH Uncoded 01/19/19 12:03 UPSET Review of Systems Constitutional Reports as per HPI, Denies chills, Denies fever(s), Denies headache(s) and Denies weakness ENT Denies headache(s) Cardiovascular Reports as per HPI, Denies chest pain, Denies chest pain at rest, Denies chest pain with activity and Denies dyspnea Respiratory Reports as per HPI, Denies cough and Denies dyspnea Musculoskeletal Reports as per HPI and Denies tingling Integumentary/Breasts Reports as per HPI (ecchymosis bilateral lower extremities) Neurologic Reports as per HPI, Denies headache(s), Denies tingling, Denies paresthesias and Denies weakness [facility] Medical History Actinic keratoses Alcohol abuse, in remission Atrial paroxysmal tachycardia BREAST CANCER BREAST IMPLANTS Bilateral cataracts Bilateral leg edema CKD (chronic kidney disease), stage III Calcium pyrophosphate deposition disease DENTURES Depressive disorder Fatigue Frequent PVCs GERD (gastroesophageal reflux disease) Glossodynia HTN (hypertension) HX: breast cancer History of colitis Hot flashes Hypomagnesemia IBS (irritable colon syndrome) Insomnia Left knee pain retirement systemic steroid user Lumbar back pain Melanosis coli Osteoarthritis Osteopenia Paresthesia RLS (restless legs syndrome) Rheumatoid arthritis Sciatica USES A WALKER Ulcerative colitis Urinary incontinence Surgical History Abdominal hysterectomy BACK SURGERY Breast, Mastectomy Colonoscopy - MAC (11/26/09) RIGHT FOOT SURGERY Replacement of total knee joint Family History Mother Parkinson's disease Father Personal history of malignant neoplasm Sister No problems noted. Brother No problems noted. Social History Smoking/Tobacco Use Status: Never Alcohol Intake: current Alcohol Intake frequency: 0-2 drinks per day Alcohol type: wine Drug use: Never Substance use type: does not use Do you feel safe in your relationship?: Yes Exam Const General: cooperative, healthy appearing, comfortable, no acute distress, well developed and well groomed Nutritional Appearance: well nourished, overweight and edematous (bilateral lower extremities) Orientation: alert and awake [facility] Head: normal to inspection, no palpable skull fracture, normocephalic and atraumatic Ears: hearing grossly normal bilaterally Face and sinus: normal facial exam Resp Effort & Inspection: normal respiratory effort, able to speak in complete sentences and no respiratory distress Auscultation: clear to auscultation bilaterally Cardio Rate: regular rate Rhythm: regular rhythm Heart Sounds: S1 normal and S2 normal Skin General skin exam: ecchymosis (bilateral anterior knees, right anterior tibia) Neuro General: alert and awake Cognition: normal cognition Speech: speech normal Gait: gait abnormal (patient brought in via wheelchair) Motor: muscle tone normal throughout Sensory Exam: no sensory deficits noted Extrem General: full ROM, normal capillary refill, no joint enlargement noted (chronic swelling bilateral ankles R>L), no calf tenderness and edema Laterality: bilateral (LE, noted to have darkening and discoloration of anterior tibia, appears chronic) Psych Appearance: grossly normal and well kempt Mental Status: mental status grossly normal Speech and Movement: speech and movement normal
--- NOTE | 2019-01-19 14:57 | DI.VRAD_ITS ---
Addendum created by Yordan Dial MD on 01/19/2019 5:47:18 PM EDT Images are of the right knee. Initial report created on 01/19/2019 2:56:51 PM EDT EXAM: XR Left Knee, 4 or more Views EXAM DATE/TIME: 01/19/2019 12:03 PM CLINICAL HISTORY: 78 years old, female; Signs and symptoms; Other: Fall; Prior surgery; Surgery date: 6+ months; Surgery type: Total knee TECHNIQUE: Imaging protocol: XR Left knee. Views: 4 or more views. COMPARISON: CR XR knee LT 2V AP,lat 10/02/2018 2:16 PM FINDINGS: Inhomogeneity most likely representing diffuse osteopenia. No acute fracture. Degenerative arthritis with joint space narrowing and mild osteophytic spurring. No evidence of significant joint effusion. IMPRESSION: No evidence of acute bony normality. Dictated and Authenticated by: Yordan Dial MD. Ordering:VIRGINIA Sanabria MD
--- NOTE | 2019-01-19 14:58 | DI.VRAD_ITS ---
EXAM: XR Left Knee, 4 or more Views EXAM DATE/TIME: 01/19/2019 12:03 PM CLINICAL HISTORY: 78 years old, female; Signs and symptoms; Other: Fall TECHNIQUE: Imaging protocol: XR Left knee. Views: 4 or more views. COMPARISON: CR XR knee LT 2V AP,lat 10/02/2018 2:16 PM FINDINGS: Prior knee arthroplasty. No acute fracture. No abnormal fluid collection. IMPRESSION: No evidence of acute bony abnormality. Dictated and Authenticated by: Yordan Dial MD. Ordering:VIRGINIA Sanabria MD
== END 2019-01-19 15:11 | disposition home or self-care (01) ==
PROVIDERS: Emergency Provider Physician Assistant; PCP Internal Medicine
DX: S80.01XA Contusion of right knee, initial encounter (principal); S80.02XA Contusion of left knee, initial encounter; S80.11XA Contusion of right lower leg, initial encounter; W18.30XA Fall on same level, unspecified, initial encounter; N18.9 Chronic kidney disease, unspecified; I12.0 Hypertensive chronic kidney disease with stage 5 chronic kidney disease or end stage renal disease; Z96.652 Presence of left artificial knee joint
CPT/HCPCS: 73562; 99284

== ENCOUNTER 2019-04-11 02:21 | Outpatient (RCR) | payer MEDICARE, OTHER, SELFPAY ==
[2019-04-11] MEDS: Acetaminophen 325 MG TAB 650 MG PO (11:20)
[2019-04-11] MEDS: Normal Saline Flush 10 ML SYR IVP (11:52)
[2019-04-11] MEDS: ABATACEPT 750 MG in Normal Saline 100 ML 200 MG IVPB (11:52)
[2019-04-11 12:23] LABS: ALT 17 U/L (12-78); AST 12 U/L (15-37); Albumin 3.4 g/dL (3.4-5.0); Alkaline Phosphatase 43 U/L (46-116); C-Reactive Protein 0.84 mg/dL (0.0-0.3); CREATININE 1.43 mg/dL (0.55-1.02); Estimated GFR 35.58 (mL/min/1.73m2)
== END 2019-04-16 23:59 | disposition home or self-care (01) ==
LOC: INF 02:21
PROVIDERS: PCP Internal Medicine; Visit Provider Internal Medicine
DX: M06.9 Rheumatoid arthritis, unspecified (principal)
CPT/HCPCS: 36415; 96365; 82040; 82565; 84075; 84450; 84460; 86140; J0129

== ENCOUNTER 2019-04-25 12:32 | Outpatient (CLI) | payer MEDICARE, OTHER, SELFPAY ==
[2019-04-28 11:00] LABS: Hepatitis B Surface Ag Negative (NEGAT)
[2019-04-28 11:03] LABS: HBs Antibody, Quant <3.1 mIU/mL; Hepatitis B Surface Ab Negative
[2019-04-28 14:31] LABS: TB Interpretation Negative (NEGAT)
== END 2019-04-25 12:52 ==
PROVIDERS: PCP Internal Medicine; Visit Provider Internal Medicine
DX: M06.031 Rheumatoid arthritis without rheumatoid factor, right wrist (principal); Z11.1 Encounter for screening for respiratory tuberculosis
CPT/HCPCS: 36415; 86706; 87340; 86480

== ENCOUNTER 2019-05-07 01:35 | Outpatient (RCR) | payer MEDICARE, OTHER, SELFPAY ==
[2019-04-25 13:30] VITALS: BP 128/78; PULSE 84; RESP 100; TEMP 36.1; O2SAT 20
[2019-04-25] MEDS: Normal Saline Flush 10 ML SYR IVP (13:43)
[2019-04-25] MEDS: ABATACEPT 750 MG in Normal Saline 100 ML 200 MG IVPB (13:43)
[2019-04-25] MEDS: Acetaminophen 325 MG TAB 650 MG PO (13:47)
[2019-05-07] MEDS: Acetaminophen 325 MG TAB 650 MG PO (11:19)
[2019-05-07] MEDS: Normal Saline Flush 10 ML SYR IVP (11:19)
[2019-05-07] MEDS: ABATACEPT 750 MG in Normal Saline 100 ML 200 MG IVPB (12:13)
== END 2019-05-17 23:59 | disposition home or self-care (01) ==
LOC: INF 01:35
PROVIDERS: PCP Internal Medicine; Visit Provider Internal Medicine
DX: M06.9 Rheumatoid arthritis, unspecified (principal)
CPT/HCPCS: 36415; 86706; 87340; 96365; 96366; 86480; J0129

== ENCOUNTER 2019-06-04 02:07 | Outpatient (RCR) | payer MEDICARE, OTHER, SELFPAY ==
[2019-06-04 12:31] LABS: Abs Immature Grans 0.03 k/cumm (0.0-0.09); Absolute Basophil Count 0.02 k/cumm (0.0-0.2); Absolute Eosinophil Count 0.03 k/cumm (0.0-0.7); Absolute Lymphocyte Count 0.97 k/cumm (1.2-3.4); Absolute Monocyte Count 0.36 k/cumm (0.11-0.7); Absolute Neutrophil Count 8.94 k/cumm (1.2-6.7); Basophils % 0.2; Eosinophils % 0.3; HCT 40.6 % (36.0-46.0); Immature Grans % 0.3; Lymphocytes % 9.4; Mean Corpuscular Hemoglobin 29.5 pg (27.0-33.0); Mean Corpuscular Volume 92.3 fL (80-95); Mean Platelet Volume 9.3 fL (8.0-11.0); Monocytes % 3.5; Neutrophils % 86.3; Platelet Count 346 x1000/uL (130-400); RBC Distribution Width 13.8 % (11.7-14.6); White Blood Cell Count 10.35 k/cumm (4.4-10.8)
[2019-06-04 12:45] LABS: ALT 15 U/L (14-59); AST 36 U/L (15-37); Albumin 3.3 g/dL (3.4-5.0); Alkaline Phosphatase 57 U/L (46-116); C-Reactive Protein 1.23 mg/dL (0.0-0.3); CREATININE 1.16 mg/dL (0.55-1.02)
[2019-06-04] MEDS: ABATACEPT 750 MG in Normal Saline 100 ML 200 MG IVPB (12:48)
[2019-06-04] MEDS: Normal Saline Flush 10 ML SYR IVP (12:52)
== END 2019-06-16 23:59 | disposition home or self-care (01) ==
LOC: INF 02:07
PROVIDERS: PCP Internal Medicine; Visit Provider Internal Medicine
DX: M06.9 Rheumatoid arthritis, unspecified (principal)
CPT/HCPCS: 36415; 96365; 82040; 82565; 84075; 84450; 84460; 85025; 86140; J0129

== ENCOUNTER 2019-07-02 01:55 | Outpatient (RCR) | payer MEDICARE, OTHER, SELFPAY ==
[2019-07-02] MEDS: Normal Saline Flush 10 ML SYR IVP (14:14)
[2019-07-02] MEDS: ABATACEPT 750 MG in Normal Saline 100 ML 200 MG IVPB (14:14)
== END 2019-07-17 23:59 | disposition home or self-care (01) ==
LOC: INF 01:55
PROVIDERS: PCP Internal Medicine; Visit Provider Internal Medicine
DX: M06.9 Rheumatoid arthritis, unspecified (principal)
CPT/HCPCS: 96365; J0129

== ENCOUNTER 2019-07-14 01:51 | Outpatient (CLI) | payer MEDICARE, OTHER, SELFPAY ==
--- NOTE | 2019-07-14 14:36 | DI.MAMMO_ITS ---
EXAM: MG MAMMO diagnostic 60 MIN DUR CLINICAL HISTORY: HX BREAST CANCER Z85.3, SCREENING, RT BREAST MASTECTOMY W/ IMPLANTS COMPARISON: Available for comparison TECHNIQUE: Full Field digital Mammography views with Computer Aided Diagnosis followed by Breast T omosynthesis. FINDINGS: The patient is status post right mastectomy. There is a stable left breast implant. There is a biop sy clip again seen in the left breast. Masses/Architectural Distortion: None seen. Microcalcifications: No suspicious pleomorphic-type are seen. Impression: 1. No significant interval change with no specific features of malignancy noted. 2. Unless there is more urgent need, yearly screening mammography of the breast is recommended. BI-RADS Cat 2 - Benign Findings Breast Density - Category B - Scattered areas of fibroglandular density A negative radiographic report should not delay biopsy if a dominant or clinically suspicious mass is present. Up to ten percent of cancers are not identified on mammography. A negative report may reinforce clinical impression. Adenosis and dense breasts may obscure an underlying neoplasm. False positive reports average 6 to 10%.
== END 2019-07-14 02:11 ==
PROVIDERS: PCP Internal Medicine; Visit Provider Internal Medicine
DX: Z12.31 Encounter for screening mammogram for malignant neoplasm of breast (principal); Z85.3 Personal history of malignant neoplasm of breast; Z90.11 Acquired absence of right breast and nipple; Z98.82 Breast implant status
CPT/HCPCS: 77063; 77067

== ENCOUNTER 2019-07-22 17:20 | Outpatient (REF) | payer MEDICARE, OTHER, SELFPAY ==
[2019-07-22 22:08] LABS: BUN 18 mg/dL (7-18); CREATININE 1.43 mg/dL (0.55-1.02); Calcium 8.7 mg/dL (8.5-10.1); Chloride 104 mmol/L (98-107); Estimated GFR 35.58 (mL/min/1.73m2); Glucose 139 mg/dL (70-100); Magnesium 1.9 mg/dL (1.8-2.4); Potassium 5.3 mmol/L (3.5-5.1); Sodium 140 mmol/L (136-145)
== END 2019-07-22 17:40 ==
LOC: NCHCN 17:20
PROVIDERS: PCP Internal Medicine; Visit Provider Internal Medicine
DX: E83.42 Hypomagnesemia (principal); I10 Essential (primary) hypertension; F41.8 Other specified anxiety disorders; G25.2 Other specified forms of tremor; M19.90 Unspecified osteoarthritis, unspecified site; Z86.39 Personal history of other endocrine, nutritional and metabolic disease
CPT/HCPCS: 80048; 83735

== ENCOUNTER 2019-07-31 01:52 | Outpatient (RCR) | payer MEDICARE, OTHER, SELFPAY ==
[2019-07-31 13:52] LABS: Abs Immature Grans 0.03 k/cumm (0.0-0.09); Absolute Basophil Count 0.02 k/cumm (0.0-0.2); Absolute Eosinophil Count 0.04 k/cumm (0.0-0.7); Absolute Lymphocyte Count 1.12 k/cumm (1.2-3.4); Absolute Monocyte Count 0.27 k/cumm (0.11-0.7); Basophils % 0.2; Eosinophils % 0.4; HGB 13.1 g/dL (12.0-15.5); Immature Grans % 0.3; Lymphocytes % 11.1; Mean Corpuscular Volume 90.7 fL (80-95); Mean Platelet Volume 9.1 fL (8.0-11.0); Monocytes % 2.7; Neutrophils % 85.3; Platelet Count 385 x1000/uL (130-400); RBC 4.52 m/cumm (4.00-5.20); RBC Distribution Width 13.9 % (11.7-14.6); White Blood Cell Count 10.08 k/cumm (4.4-10.8)
[2019-07-31 14:03] LABS: ALT 19 U/L (14-59); AST 17 U/L (15-37); Albumin 3.7 g/dL (3.4-5.0); Alkaline Phosphatase 59 U/L (46-116); C-Reactive Protein 0.11 mg/dL (0.0-0.3); CREATININE 1.23 mg/dL (0.55-1.02); Estimated GFR 42.34 (mL/min/1.73m2)
[2019-07-31] MEDS: ABATACEPT 750 MG in Normal Saline 100 ML 200 MG IVPB (14:06)
[2019-07-31] MEDS: Normal Saline Flush 10 ML SYR IVP (14:06)
== END 2019-08-16 23:59 | disposition home or self-care (01) ==
LOC: INF 01:52
PROVIDERS: Internal Medicine; PCP Internal Medicine; Visit Provider Internal Medicine
DX: M06.9 Rheumatoid arthritis, unspecified (principal)
CPT/HCPCS: 36415; 96365; 82040; 82565; 84075; 84450; 84460; 85025; 86140; J0129

== ENCOUNTER 2019-08-04 11:55 | Outpatient (CLI) | payer MEDICARE, OTHER, SELFPAY ==
--- NOTE | 2019-08-04 10:26 | DI.RAD_ITS ---
EXAM: XR ANKLE LT 2V INDICATION: f/u L ankle OA. COMPARISON: RIGHT HAND COMPLETE from 10/19/2016 LEFT FOOT COMPLETE from 10/19/2016 LEFT HAND COMPLETE from 10/19/2016 TECHNIQUE: 2D digital imaging was performed. FINDINGS: There is severe narrowing of the tibiotalar joint space. The there is obliteration of the joint spac e and prominent periarticular spurring. There is deformity of the talus with prominent spurring. Th ere are degenerative changes also seen in the tarsal region. The bones appear osteoporotic. Plantar calcaneal spur is seen. IMPRESSION: Severe degenerative changes of the tibiotalar joint with prominent spurring and deformity.
--- NOTE | 2019-08-04 10:26 | DI.RAD_ITS ---
EXAM: XR ANKLE RT 2V INDICATION: f/u R ankle OA. COMPARISON: RIGHT FOOT COMPLETE from 10/19/2016 LEFT FOOT COMPLETE from 10/19/2016 LEFT HAND COMPLETE from 10/19/2016 TECHNIQUE: 2D digital imaging was performed. FINDINGS: There is obliteration of the tibial talar joint. There is severe deformity of the talus with colla pse. Bony fragments are seen anterior and posteriorly. There are also severe degenerative changes i n the intertarsal region. Findings have progressed when compared with previous exam. There is marke d soft tissue swelling. IMPRESSION: Severe deformity of the to the tibial talar joint with severe degenerative changes of the tarsal shane on.
== END 2019-08-04 12:15 ==
PROVIDERS: PCP Internal Medicine; Referring Provider Internal Medicine; Visit Provider Student in an Organized Health Care Education/Training Program
DX: M19.071 Primary osteoarthritis, right ankle and foot (principal); M19.072 Primary osteoarthritis, left ankle and foot; M81.0 Age-related osteoporosis without current pathological fracture; M17.11 Unilateral primary osteoarthritis, right knee; M17.12 Unilateral primary osteoarthritis, left knee; M14.679 Charcot's joint, unspecified ankle and foot; M21.961 Unspecified acquired deformity of right lower leg
CPT/HCPCS: 20610; 99214; 73600; J1040

== ENCOUNTER 2019-08-29 01:18 | Outpatient (RCR) | payer MEDICARE, OTHER, SELFPAY ==
[2019-08-29] MEDS: Acetaminophen 325 MG TAB 650 MG PO (12:22)
[2019-08-29] MEDS: Normal Saline Flush 10 ML SYR IVP (12:22)
[2019-08-29] MEDS: ABATACEPT 750 MG in Normal Saline 100 ML 200 MG IVPB (12:35)
== END 2019-09-16 23:59 | disposition home or self-care (01) ==
LOC: INF 01:18
PROVIDERS: PCP Internal Medicine; Visit Provider Family Medicine
DX: M06.9 Rheumatoid arthritis, unspecified (principal)
CPT/HCPCS: 96365; J0129

== ENCOUNTER 2019-09-23 01:39 | Outpatient (RCR) | payer MEDICARE, OTHER, SELFPAY ==
[2019-09-23 13:58] LABS: Abs Immature Grans 0.02 k/cumm (0.0-0.09); Absolute Basophil Count 0.02 k/cumm (0.0-0.2); Absolute Eosinophil Count 0.03 k/cumm (0.0-0.7); Absolute Lymphocyte Count 0.85 k/cumm (1.2-3.4); Absolute Neutrophil Count 8.04 k/cumm (1.2-6.7); Basophils % 0.2; Eosinophils % 0.3; HCT 39.8 % (36.0-46.0); HGB 12.8 g/dL (12.0-15.5); Immature Grans % 0.2 %; Lymphocytes % 9.3; Mean Corp. HGB Concentration 32.2 g/dL (32.0-36.0); Mean Corpuscular Hemoglobin 29.3 pg (27.0-33.0); Mean Corpuscular Volume 91.1 fL (80-95); Mean Platelet Volume 9.2 fL (8.0-11.0); Monocytes % 2.2; Neutrophils % 87.8; Platelet Count 312 x1000/uL (130-400); RBC 4.37 m/cumm (4.00-5.20); RBC Distribution Width 14.9 % (11.7-14.6); White Blood Cell Count 9.16 k/cumm (4.4-10.8)
[2019-09-23] MEDS: Normal Saline Flush 10 ML SYR IVP (14:07)
[2019-09-23] MEDS: ABATACEPT 750 MG in Normal Saline 100 ML 200 MG IVPB (14:07)
[2019-09-23 15:09] LABS: ALT 12 U/L (14-59); AST 17 U/L (15-37); Albumin 3.5 g/dL (3.4-5.0); Alkaline Phosphatase 50 U/L (46-116); Anion Gap 10.7 mmol/L (3-11); BUN 22 mg/dL (7-18); Bilirubin, Total 0.3 mg/dL (0.2-1.0); CO2 27.3 mmol/L (21.0-32.0); Calcium 8.7 mg/dL (8.5-10.1); Chloride 101 mmol/L (98-107); Estimated GFR 39.61 (mL/min/1.73m2); Glucose 104 mg/dL (74-106); Potassium 3.9 mmol/L (3.5-5.1); Sodium 139 mmol/L (136-145)
[2019-09-23 15:15] LABS: C-Reactive Protein < 0.05 mg/dL (0.0-0.3)
== END 2019-10-17 23:59 | disposition home or self-care (01) ==
LOC: INF 01:39
PROVIDERS: Internal Medicine; PCP Internal Medicine; Visit Provider Family Medicine
DX: M06.9 Rheumatoid arthritis, unspecified (principal); M19.071 Primary osteoarthritis, right ankle and foot; M17.11 Unilateral primary osteoarthritis, right knee
CPT/HCPCS: 36415; 80053; 96365; 85025; 86140; J0129

== ENCOUNTER 2019-10-21 02:10 | Outpatient (RCR) | payer MEDICARE, OTHER, SELFPAY ==
[2019-10-21] MEDS: ABATACEPT 750 MG in Normal Saline 100 ML 200 MG IVPB (10:52)
[2019-10-21] MEDS: Normal Saline Flush 10 ML SYR IVP (10:53)
== END 2019-11-15 23:59 | disposition home or self-care (01) ==
LOC: INF 02:10
PROVIDERS: PCP Internal Medicine; Visit Provider Family Medicine
DX: M06.9 Rheumatoid arthritis, unspecified (principal)
CPT/HCPCS: 96365; J0129

== ENCOUNTER 2019-12-16 04:08 | Outpatient (RCR) | payer MEDICARE, OTHER, SELFPAY ==
[2019-11-18] MEDS: ABATACEPT 750 MG in Normal Saline 100 ML 200 MG IVPB (13:25)
[2019-11-18 13:31] LABS: Abs Immature Grans 0.02 k/cumm (0.0-0.09); Absolute Basophil Count 0.02 k/cumm (0.0-0.2); Absolute Eosinophil Count 0.13 k/cumm (0.0-0.7); Absolute Lymphocyte Count 0.98 k/cumm (1.2-3.4); Absolute Monocyte Count 0.47 k/cumm (0.11-0.7); Absolute Neutrophil Count 7.88 k/cumm (1.2-6.7); Basophils % 0.2; Eosinophils % 1.4; HCT 41.3 % (36.0-46.0); HGB 13.3 g/dL (12.0-15.5); Immature Grans % 0.2 %; Lymphocytes % 10.3; Mean Corp. HGB Concentration 32.2 g/dL (32.0-36.0); Mean Corpuscular Hemoglobin 29.8 pg (27.0-33.0); Mean Corpuscular Volume 92.4 fL (80-95); Mean Platelet Volume 8.9 fL (8.0-11.0); Monocytes % 4.9; Platelet Count 311 x1000/uL (130-400); RBC 4.47 m/cumm (4.00-5.20); RBC Distribution Width 14.1 % (11.7-14.6)
[2019-11-18 13:38] LABS: ALT 16 U/L (14-59); AST 23 U/L (15-37); Albumin 3.4 g/dL (3.4-5.0); Alkaline Phosphatase 50 U/L (46-116); Anion Gap 11.8 mmol/L (3-11); BUN 21 mg/dL (7-18); Bilirubin, Total 0.5 mg/dL (0.2-1.0); CO2 25.2 mmol/L (21.0-32.0); CREATININE 1.16 mg/dL (0.55-1.02); Calcium 8.4 mg/dL (8.5-10.1); Chloride 101 mmol/L (98-107); Estimated GFR 45.18 (mL/min/1.73m2); Glucose 95 mg/dL (74-106); Sodium 138 mmol/L (136-145); Total Protein 6.8 g/dL (6.4-8.2)
[2019-11-18] MEDS: Normal Saline Flush 10 ML SYR IVP (14:08)
[2019-12-16] MEDS: ABATACEPT 750 MG in Normal Saline 100 ML 200 MG IVPB (13:30)
[2019-12-16] MEDS: Normal Saline Flush 10 ML SYR IVP (13:30)
== END 2019-12-16 23:59 | disposition home or self-care (01) ==
LOC: INF 04:08
PROVIDERS: Internal Medicine; PCP Internal Medicine; Visit Provider Family Medicine
DX: M06.9 Rheumatoid arthritis, unspecified (principal)
CPT/HCPCS: 36415; 80053; 96365; 85025; 86140; J0129

== ENCOUNTER 2020-01-13 00:37 | Outpatient (RCR) | payer MEDICARE, OTHER, SELFPAY ==
[2020-01-13] MEDS: Normal Saline Flush 10 ML SYR IVP (13:21)
[2020-01-13] MEDS: Acetaminophen 325 MG TAB 650 MG PO (13:21)
[2020-01-13] MEDS: ABATACEPT 750 MG in Normal Saline 100 ML 200 MG IVPB (13:54)
== END 2020-01-15 23:59 | disposition home or self-care (01) ==
LOC: INF 00:37
PROVIDERS: PCP Internal Medicine; Visit Provider Family Medicine
DX: M06.9 Rheumatoid arthritis, unspecified (principal)
CPT/HCPCS: 96365; J0129

== ENCOUNTER 2020-02-10 01:22 | Outpatient (RCR) | payer MEDICARE, OTHER, SELFPAY ==
[2020-02-10] MEDS: ABATACEPT 750 MG in Normal Saline 100 ML 200 MG IVPB (13:48)
[2020-02-10] MEDS: Normal Saline Flush 10 ML SYR IVP (13:53)
[2020-02-10 13:55] LABS: Abs Immature Grans 0.01 k/cumm (0.0-0.09); Absolute Basophil Count 0.01 k/cumm (0.0-0.2); Absolute Eosinophil Count 0.02 k/cumm (0.0-0.7); Absolute Lymphocyte Count 0.83 k/cumm (1.2-3.4); Absolute Monocyte Count 0.18 k/cumm (0.11-0.7); Absolute Neutrophil Count 6.23 k/cumm (1.2-6.7); Basophils % 0.1; Eosinophils % 0.3; HGB 13.4 g/dL (12.0-15.5); Immature Grans % 0.1 %; Lymphocytes % 11.4; Mean Corp. HGB Concentration 32.7 g/dL (32.0-36.0); Mean Corpuscular Hemoglobin 30.9 pg (27.0-33.0); Mean Corpuscular Volume 94.5 fL (80-95); Monocytes % 2.5; Neutrophils % 85.6; Platelet Count 292 x1000/uL (130-400); RBC 4.34 m/cumm (4.00-5.20); RBC Distribution Width 13.6 % (11.7-14.6); White Blood Cell Count 7.28 k/cumm (4.4-10.8)
[2020-02-10] MEDS: Acetaminophen 325 MG TAB 650 MG PO (13:56)
[2020-02-10 14:05] LABS: ALT 18 U/L (14-59); AST 20 U/L (15-37); Albumin 3.5 g/dL (3.4-5.0); Alkaline Phosphatase 44 U/L (46-116); Anion Gap 7.6 mmol/L (3-11); BUN 21 mg/dL (7-18); Bilirubin, Total 0.4 mg/dL (0.2-1.0); CO2 26.4 mmol/L (21.0-32.0); CREATININE 1.35 mg/dL (0.55-1.02); Calcium 8.6 mg/dL (8.5-10.1); Chloride 101 mmol/L (98-107); Estimated GFR 37.93 (mL/min/1.73m2); Glucose 104 mg/dL (74-106); Potassium 4.2 mmol/L (3.5-5.1); Sodium 135 mmol/L (136-145); Total Protein 7.1 g/dL (6.4-8.2)
[2020-02-10 14:09] LABS: C-Reactive Protein < 0.05 mg/dL (0.0-0.3)
== END 2020-02-15 23:59 | disposition home or self-care (01) ==
LOC: INF 01:22
PROVIDERS: Internal Medicine; PCP Internal Medicine; Visit Provider Family Medicine
DX: M06.9 Rheumatoid arthritis, unspecified (principal)
CPT/HCPCS: 36415; 80053; 96365; 85025; 86140; J0129

== ENCOUNTER 2020-03-09 00:52 | Outpatient (RCR) | payer MEDICARE, OTHER, SELFPAY ==
[2020-03-09] MEDS: Normal Saline Flush 10 ML SYR IVP (13:41)
[2020-03-09] MEDS: ABATACEPT 750 MG in Normal Saline 100 ML 200 MG IVPB (14:10)
== END 2020-03-16 23:59 | disposition home or self-care (01) ==
LOC: INF 00:52
PROVIDERS: PCP Internal Medicine; Visit Provider Family Medicine
DX: M06.9 Rheumatoid arthritis, unspecified (principal)
CPT/HCPCS: 96365; J0129

== ENCOUNTER 2020-04-13 01:56 | Outpatient (RCR) | payer MEDICARE, OTHER, SELFPAY ==
[2020-04-13 13:14] LABS: Abs Immature Grans 0.04 10^3/uL (0.0-0.06); Absolute Basophil Count 0.04 10^3/uL (0.0-0.2); Absolute Eosinophil Count 0.11 10^3/uL (0.0-0.7); Absolute Lymphocyte Count 1.31 10^3/uL (1.2-3.4); Absolute Monocyte Count 0.31 10^3/uL (0.1-0.8); Absolute Neutrophil Count 9.35 10^3/uL (1.2-6.7); Basophils % 0.4; HCT 40.9 % (36.0-46.0); HGB 13.2 g/dL (11.2-15.7); Immature Grans % 0.4; Lymphocytes % 11.7; MCH 30.6 pg (27.0-33.0); MCHC 32.3 % (32.0-36.0); MCV 94.9 fL (80-95); MPV 9.2 fL (8.0-11.0); Monocytes % 2.8; Neutrophils % 83.7 %; Platelet Count 278 10^3/uL (130-400); RBC 4.31 10^6/uL (3.93-5.22); RDW 13.3 % (11.7-14.6); RDW-SD 46.6 fL; WBC 11.17 10^3/uL (4.4-10.8)
[2020-04-13] MEDS: ABATACEPT 750 MG in Normal Saline 100 ML 200 MG IVPB (13:27)
[2020-04-13] MEDS: Normal Saline Flush 10 ML SYR IVP (13:27)
[2020-04-13 13:53] LABS: ALT 16 U/L (14-59); AST 21 U/L (15-37); Albumin 3.6 g/dL (3.4-5.0); Alkaline Phosphatase 44 U/L (46-116); Anion Gap 13.4 mmol/L (3-11); BUN 21 mg/dL (7-18); Bilirubin, Total 0.6 mg/dL (0.2-1.0); CO2 22.6 mmol/L (21.0-32.0); CREATININE 1.41 mg/dL (0.55-1.02); Calcium 8.7 mg/dL (8.5-10.1); Chloride 100 mmol/L (98-107); Estimated GFR 36.07 (mL/min/1.73m2); Glucose 103 mg/dL (74-106); Potassium 3.8 mmol/L (3.5-5.1); Sodium 136 mmol/L (136-145); Total Protein 7.1 g/dL (6.4-8.2)
[2020-04-13 13:58] LABS: C-Reactive Protein < 0.05 mg/dL (0.0-0.3)
== END 2020-04-16 23:59 | disposition home or self-care (01) ==
LOC: INF 01:56
PROVIDERS: Internal Medicine; PCP Internal Medicine; Visit Provider Family Medicine
DX: M06.9 Rheumatoid arthritis, unspecified (principal)
CPT/HCPCS: 36415; 80053; 96365; 85025; 86140; J0129

== ENCOUNTER 2020-05-14 04:28 | Outpatient (RCR) | payer MEDICARE, OTHER, SELFPAY ==
[2020-05-14] MEDS: ABATACEPT 750 MG in Normal Saline 100 ML 200 MG IVPB (11:35)
[2020-05-14] MEDS: Normal Saline Flush 10 ML SYR IVP (11:46)
== END 2020-05-17 23:59 | disposition home or self-care (01) ==
LOC: INF 04:28
PROVIDERS: PCP Internal Medicine; Visit Provider Family Medicine
DX: M06.9 Rheumatoid arthritis, unspecified (principal)
CPT/HCPCS: 96365; J0129

== ENCOUNTER 2020-05-18 13:51 | Emergency (ER) | payer MEDICARE, OTHER, SELFPAY ==
[2020-05-18 13:57] VITALS: BP 143/61; PULSE 88; RESP 16; TEMP 36.9; O2SAT 98
--- NOTE | 2020-05-18 14:00 | DI.RAD_ITS ---
EXAM: XR RIBS RT W PA LAT CHEST CLINICAL HISTORY: Fall Right rib pain TECHNIQUE: 2D digital imaging was performed. COMPARISON: CR CHEST 2 VIEWS PA,LAT from 06/15/2014 FINDINGS: MEDIASTINUM: Normal. HEART: Normal. PULMONARY VASCULATURE: Normal. LUNGS: Clear. COPD. PLEURAL SPACE: No pleural effusion or pneumothorax. BONE:Coarse calcifications seen in the right proximal humeral metaphysis likely reflecting in a benig n lesion such as an enchondroma. Old thoracic compression fracture deformities. RIGHT RIBS: There are multiple old healed right rib fractures. There may be non displaced acute righ t 7th rib fracture posterior laterally. OTHER FINDINGS:Normal. IMPRESSION: 1. No acute pulmonary findings. 2. Question of a nondisplaced acute right 7th rib fracture posterior laterally. 3. Multiple old healed right rib fractures. 4. No pneumothorax or pleural effusion. DATA REPOSITORY: RADIATION DOSE DELIVERED:
--- NOTE | 2020-05-18 14:00 | DI.RAD_ITS ---
EXAM: XR TIB/FIB LT CLINICAL HISTORY: Hematoma, fall 2 1 week ago. TECHNIQUE: 2D digital imaging was performed COMPARISON: No exams were available for comparison FINDINGS: BONES: No acute fracture is present. No bony destructive lesion is seen. The patient has a left total knee replacement. Marked degenerative changes are seen in the left ankle. SOFT TISSUE: Normal. IMPRESSION: No acute fracture or dislocation. DATA REPOSITORY: RADIATION DOSE DELIVERED:
--- NOTE | 2020-05-18 14:13 | ED.GENADUL_ITS ---
Discharge Plan Discharge Details Chief Complaint: Orthopedic Primary Care Provider: Jefry Boyer ED Provider: Sarah Agudelo Home Meds and New Rx's Prescriptions: No Action (DME) Custom [employer] Brace Qty: 1 RF: 0 prednisone 5 MG tablet 2 tab PO DAILY RF: 0 omeprazole 20 MG capsule,delayed release(DR/EC) 20 mg PO DAILY RF: 0 ergocalciferol (vitamin D2) [Vitamin D2] 50,000 UNIT capsule 50,000 unit PO weekly RF: 0 Cane Qty: 1 RF: 0 magnesium oxide 250 MG tablet 250 mg PO DAILY RF: 0 hydrocodone-acetaminophen 1 EACH tablet 1 tab-cap PO Q4H PRN MDD 5 RF: 0 spironolactone 25 MG tablet 25 mg PO DAILY RF: 0 aspirin 81 mg Tablet,Chewable 81 mg PO DAILY RF: 0 fluoxetine 40 mg Capsule 40 mg PO DAILY RF: 0 Medical Decision Making EXAM: XR RIBS RT W PA LAT CHEST CLINICAL HISTORY: Fall Right rib pain TECHNIQUE: 2D digital imaging was performed. COMPARISON: CR CHEST 2 VIEWS PA,LAT from 06/15/2014 FINDINGS: MEDIASTINUM: Normal. HEART: Normal. PULMONARY VASCULATURE: Normal. LUNGS: Clear. COPD. PLEURAL SPACE: No pleural effusion or pneumothorax. BONE:Coarse calcifications seen in the right proximal humeral metaphysis likely reflecting in a benign lesion such as an enchondroma. Old thoracic compression fracture deformities. RIGHT RIBS: There are multiple old healed right rib fractures. There may be non displaced acute right 7th rib fracture posterior laterally. OTHER FINDINGS:Normal. IMPRESSION: 1. No acute pulmonary findings. 2. Question of a nondisplaced acute right 7th rib fracture posterior laterally. 3. Multiple old healed right rib fractures. 4. No pneumothorax or pleural effusion. At this time x-ray results are pending, care is to be handed off to oncoming provider MARCO ANTONIO Gilbert discussed case and details with her. There appears to be a right pelvic fracture noted on the x-ray images, with the [place] at bedside for patient evaluation. HPI General Mode of arrival: wheelchair . Date/Time Provider Initiated Documentation: 05/18/20 13:58 . Limitations to Documentation: no limitations . Information obtained by: patient . HPI Narrative: 79-year-old female presents the ER with chief complaint of right hip pain and right rib pain status post a fall last night approximately 9:00 PM. Patient states that she was in her kitchen and slipped on some glass bottles that had fallen and slid onto her hard floor. She denies LOC or head trauma. Denies any significant neck or back pain. No midline C-spine tenderness or L-spine tenderness with palpation. She does have ecchymosis noted to her right flank, ecchymosis noted to her right lateral hip area. She also has some contusions noted to her right posterior forearm, and some superficial skin tears noted to the left forearm. She has a hematoma noted to the lateral aspect of her left lower extremity which she reports occurred approximately 1 week ago from a separate fall. She was never evaluated at that time. Patient does endorse alcohol. She denies being on any blood thinners. However she does take baby aspirin daily. She does have a history of alcohol abuse, chronic kidney disease, hypertension, arthritis, pyelonephritis, tendinitis and bursitis. Related Data Home Medications Medication Instructions Recorded Confirmed omeprazole 20 mg PO DAILY tab-cap 09/30/13 05/18/20 prednisone 2 tab PO DAILY tab-cap 09/30/13 05/18/20 ergocalciferol (vitamin D2) 50,000 unit PO weekly 11/27/16 05/18/20 [Vitamin D2] spironolactone 25 mg PO DAILY tab 06/11/17 05/18/20 magnesium oxide 250 mg PO DAILY 04/26/18 05/18/20 hydrocodone-acetaminophen 1 tab-cap PO Q4H PRN tab-cap MDD 5 05/06/18 05/18/20 aspirin 81 mg PO DAILY 11/12/18 05/18/20 [facility] Brace #1 ea 08/06/19 08/06/19 fluoxetine 40 mg PO DAILY 05/18/20 05/18/20 Previous Rx's Medication Instructions Recorded spironolactone 25 mg PO DAILY tab 06/11/17 [facility] Brace #1 ea 08/06/19 Allergies Allergy/AdvReac Type Severity Reaction Status Date / Time latex Allergy Severe SWELLING/RA Verified 05/18/20 14:01 SH bupropion Allergy Unknown Verified 05/18/20 14:01 sertraline HCl [From Zoloft] Allergy Unknown Verified 05/18/20 14:01 tramadol Allergy Unknown Verified 05/18/20 14:01 alendronate sodium AdvReac Intermediate Verified 05/18/20 14:01 Sulfa (Sulfonamide AdvReac Intermediate STOMACH Verified 05/18/20 14:01 Antibiotics) UPSET citalopram hydrobromide AdvReac Mild Verified 05/18/20 14:01 [From Celexa] flunisolide AdvReac Mild Verified 05/18/20 14:01 sulfasalazine AdvReac Mild Verified 05/18/20 14:01 [From Azulfidine] DAIRY PRODUCT AdvReac Intermediate STOMACH Uncoded 05/18/20 14:01 UPSET General Stated Complaint: Orthopedic EVONNE: 3 Review of Systems Narrative: Constitutional: Negative for weight loss, alert and oriented, well groomed, normal body habitus, appears comfortable. HEENT: Denies trauma, headaches, blurry vision, nasal discharge, sore throat, trouble swallowing. Chest: Denies chest pain, palpitations, irregular rhythm, hypertension. Respiratory: Denies Shortness of breath, cough, hemoptysis. GI: Denies abdominal pain, nausea, vomiting, diarrhea, constipation. Musculoskeletal:. Ecchymosis noted to the right lateral hip, reports nonweightbearing and right hip pain. Right rib ecchymosis noted and mild tenderness. : Denies dysuria, hematuria, flank pain, rectal bleeding. Neuro: Denies dizziness, blurry vision, weakness, syncope, headache or facial numbness. Hematologic: Denies intolerance to heat or cold, hair loss. 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 Brother No problems noted. Social History Smoking/Tobacco Use Status: Never Alcohol Intake: current Alcohol Intake frequency: 0-2 drinks per day Alcohol type: wine Drug use: Never Substance use type: does not use Current gender identity: female Do you feel safe at home: Yes Do you feel safe in your relationship?: Yes Exam Narrative Exam Narrative: Constitutional: Alert and oriented x3. Appears stated age. Normal body habitus. Head: Normocephalic, no trauma. Eyes: Pupils PERRLA, Red reflex noted, EOM's intact. Eyelids symmetrical without lesions, discharge, or swelling. ENT: Bilateral TM's WNL, External ear normal to inspection, no mastoid TTP, swelling, or erythema, Nasal turbinates WNL, no nasal discharge. Normal dentition, Posterior pharynx WNL, no exudate. Chest: RRR, Normal S1, S2, distal pulses intact. Resp: Lungs clear to auscultation bilaterally, no wheezes, rales, or rhonchi. Musculoskeletal: Does have full range of motion noted to her hip, tenderness with weightbearing. She has ecchymosis to right hipced laterally, does have sylvain e right flank pain with palpation and ecchymosis. Skin: No suspicious rashes or lesions. Capillary refill less than 2 sec. Neurologic: Cranial nerves II-XII intact. Alert and oriented x 3. DTR's intact. Hematologic/Lymphatic: No ecchymosis, no lymphadenopathy. Skin Full body images: 1. Ecchymosis 2. Ecchymosis 3. Hematoma 4. Superficial skin tear 5. Contusion Course Vital Signs Vital signs: Vital Signs Temperature 36.9 C 05/18/20 13:57 Pulse 88 05/18/20 13:57 Respiratory Rate 16 05/18/20 13:57 Blood Pressure 143/61 H 05/18/20 13:57 Pulse Oximetry 98 05/18/20 13:57 Temperature 36.9 C 05/18/20 13:57 Temperature Source Tympanic 05/18/20 13:57 Pulse 88 05/18/20 13:57 Respiratory Rate 16 05/18/20 13:57 Blood Pressure 143/61 H 05/18/20 13:57 Blood Pressure Position Sitting 05/18/20 13:57 Pulse Oximetry 98 05/18/20 13:57 Oxygen Delivery Method Room Air 05/18/20 13:57 Oxygen Flow Rate 0 05/18/20 13:57 Pain Level 8 05/18/20 13:57 Sign Out Sign Out Data: Sign Out Comment: Pending XR result and dispo home Last updated by Sarah Agudelo at 05/18/20 16:05
--- NOTE | 2020-05-18 15:02 | DI.RAD_ITS ---
EXAM: XR HIP RT COMPLETE AP PELVIS INDICATION: Fall, R/O fracture. COMPARISON: CR XR lumbar spine complete from 06/17/2018 TECHNIQUE: 2D digital imaging was performed. FINDINGS: Acute fractures involving the right pubic bone and the medial aspects of both the right superior and inferior pubic rami. No other fracture is identified. Degenerative changes are seen in the visualiz ed lower lumbar spine and hips bilaterally. The soft tissues are unremarkable. IMPRESSION: Acute fractures involving the right pubic bone and the right superior and inferior pubic rami. DATA REPOSITORY: RADIATION DOSE DELIVERED:
--- NOTE | 2020-05-18 16:24 | DI.VRAD_ITS ---
PROCEDURE INFORMATION: Exam: XR Right Hip with Pelvis when Performed Exam date and time: 05/18/2020 3:02 PM Age: 79 years old Clinical indication: Other: Fall, R/O fracture TECHNIQUE: Imaging protocol: XR Right hip with pelvis when performed. Views: 2 or 3 views. COMPARISON: CR BILATERAL HIPS ADULT 10/19/2016 1:56 PM FINDINGS: Bones/joints: Degenerative changes in the right hip. No femoral neck fracture. . Lucencies and contour abnormality in the right symphysis pubis and right superior pubic ramus may represent acute fractures.. Soft tissues: Unremarkable. IMPRESSION: 1. No femoral neck fracture. . 2. Lucencies and contour abnormality in the right symphysis pubis and the right superior pubic ramus may represent acute fractures.. Dictated and Authenticated by: Natalee Dewitt MD. Ordering:MAXWELL Smith MD
--- NOTE | 2020-05-18 16:25 | DI.VRAD_ITS ---
PROCEDURE INFORMATION: Exam: XR Left Tibia and Fibula Exam date and time: 05/18/2020 3:03 PM Age: 79 years old Clinical indication: Other: Hematoma, fall 2 1 week ago TECHNIQUE: Imaging protocol: XR Left tibia and fibula. Views: 2 views. COMPARISON: CR XR knee LT 2V AP,lat 10/02/2018 2:16 PM FINDINGS: Bones/joints: Total knee replacement. There is no evidence of acute fracture.There is no evidence of malalignment or dislocation. Degenerative changes in the tibiotalar joint and in the tarsal bones Soft tissues: Normal. IMPRESSION: 1. Total knee replacement. 2. There is no evidence of acute fracture.There is no evidence of malalignment or dislocation. Dictated and Authenticated by: Natalee Dewitt MD. Ordering:MAXWELL Smith MD
--- NOTE | 2020-05-18 16:33 | ED.GENADUL_ITS ---
Discharge Plan Disposition Patient Disposition: HOME Condition: Stable Discharge Details Chief Complaint: Orthopedic Clinical Impression: Closed pelvic fracture, Closed fracture of rib of right side Primary Care Provider: Jefry Boyer ED Provider: Sarah Agudelo Home Meds and New Rx's Prescriptions: No Action (DME) Custom Manjula Brace Qty: 1 RF: 0 prednisone 5 MG tablet 2 tab PO DAILY RF: 0 omeprazole 20 MG capsule,delayed release(DR/EC) 20 mg PO DAILY RF: 0 ergocalciferol (vitamin D2) [Vitamin D2] 50,000 UNIT capsule 50,000 unit PO weekly RF: 0 Cane Qty: 1 RF: 0 magnesium oxide 250 MG tablet 250 mg PO DAILY RF: 0 hydrocodone-acetaminophen 1 EACH tablet 1 tab-cap PO Q4H PRN MDD 5 RF: 0 spironolactone 25 MG tablet 25 mg PO DAILY RF: 0 aspirin 81 mg Tablet,Chewable 81 mg PO DAILY RF: 0 fluoxetine 40 mg Capsule 40 mg PO DAILY RF: 0 Discharge Instructions Instructions: Pelvic Fracture (ED), Rib Fracture (ED) Additional Instructions: On x-rays today it is concerning for a right-sided seventh rib fracture. You also have a right symphysis pubis and right superior pubic ramus fracture. Use walker to get to bathroom at home and to ambulate. Please take Tylenol or Ibup rofen with food every 4-6 hours as needed for pain and swelling. I did speak with Dr. Maharaj orthopedic surgeon, he would like you to follow-up with orthopedics within 1 to 2 weeks. Follow up with primary care provider in 3-5 days. Return to ED sooner if any worsening or concerns. Increase oral fluids. Return to the ED for any worsening pain, recurrent falls, shortness of breath, fever, chills, problems urinating or any concerns. Referrals: Byron Maharaj MD [ [facility] STAFF PHYSICIAN] - Jefry Boyer MD [Primary Care Provider] - Discharge Data Discharge Date/Time-TO BE ENTERED AT DEPARTURE: 05/18/20 17:10 Medical Decision Making 79-year-old female presents to the ER via wheelchair with chief complaint of right hip pain status post fall last night approximately 9:00 PM while in her kitchen. Patient states that she slipped on some glass positive fell out of a container and fell onto her right side. She is complaining of right hip pain and right sided rib pain. She does have ecchymosis noted to her right rib and right hip area. She denies any loss of consciousness, no neck no back pain no chest pain or shortness of breath. She took hydrocodone at noon prior to arrival. Patient has a past medical history of colitis, chronic kidney disease, hypertension, alcohol abuse, arthritis, pyelonephritis, confusion, spinal stenosis and arthritis. She reports frequent recent falls. Does endorse alcohol use last night. EXAM: XR RIBS RT W PA LAT CHEST CLINICAL HISTORY: Fall Right rib pain TECHNIQUE: 2D digital imaging was performed. COMPARISON: CR CHEST 2 VIEWS PA,LAT from 06/15/2014 FINDINGS: MEDIASTINUM: Normal. HEART: Normal. PULMONARY VASCULATURE: Normal. LUNGS: Clear. COPD. PLEURAL SPACE: No pleural effusion or pneumothorax. BONE:Coarse calcifications seen in the right proximal humeral metaphysis likely reflecting in a benign lesion such as an enchondroma. Old thoracic compression fracture deformities. RIGHT RIBS: There are multiple old healed right rib fractures. There may be non displaced acute right 7th rib fracture posterior laterally. OTHER FINDINGS:Normal. IMPRESSION: 1. No acute pulmonary findings. 2. Question of a nondisplaced acute right 7th rib fracture posterior laterally. 3. Multiple old healed right rib fractures. 4. No pneumothorax or pleural effusion. EXAM: XR HIP RT COMPLETE AP PELVIS INDICATION: Fall, R/O fracture. COMPARISON: CR XR lumbar spine complete from 06/17/2018 TECHNIQUE: 2D digital imaging was performed. FINDINGS: Acute fractures involving the right pubic bone and the medial aspects of both the right superior and inferior pubic rami. No other fracture is identified. Degenerative changes are seen in the visualized lower lumbar spine and hips bilaterally. The soft tissues are unremarkable. IMPRESSION: Acute fractures involving the right pubic bone and the right superior and inferior pubic rami. 1651: Previous documentation was lost to unknown technical error. Plan is to handoff care to oncoming provider MARCO ANTONIO Gilbert pending disposition and consult with orthopedics. At this time it appears the patient has a fracture in the right symphysis pubis and the right superior pubic ramus. She is currently declining recommendation for admission for pain control and possible physical therapy. She is currently further testing with a walker patient is able to ambulate approximately 20 feet to the bathroom with little difficulty. 1655: Spoke with Dr. Maharaj orthopedic surgeon who reports that if patient does not want to be admitted and she can walk okay with a walker that is acceptable. He recommends follow-up with Ortho in 1 to 2 weeks. I will discharge patient home. Patient was able to ambulate prior to discharge as noted in noted above. Discussed plan of care with on the phone he verbalizes understanding. HPI General Mode of arrival: wheelchair . Date/Time Provider Initiated Documentation: 05/18/20 13:58 . Limitations to Documentation: no limitations . Information obtained by: patient . HPI Narrative: 79-year-old female presents to the ER via wheelchair with chief complaint of right hip pain status post fall last night approximately 9:00 PM while in her kitchen. Patient states that she slipped on some glass positive fell out of a container and fell onto her right side. She is complaining of right hip pain and right sided rib pain. She does have ecchymosis noted to her right rib and right hip area. She denies any loss of consciousness, no neck no back pain no chest pain or shortness of breath. She took hydrocodone at noon prior to arrival. Patient has a past medical history of colitis, chronic kidney disease, hypertension, alcohol abuse, arthritis, pyelonephritis, confusion, spinal stenosis and arthritis. She reports frequent recent falls. Does endorse alcohol use last night. Related Data Home Medications Medication Instructions Recorded Confirmed omeprazole 20 mg PO DAILY tab-cap 09/30/13 05/18/20 prednisone 2 tab PO DAILY tab-cap 09/30/13 05/18/20 ergocalciferol (vitamin D2) 50,000 unit PO weekly 11/27/16 05/18/20 [Vitamin D2] spironolactone 25 mg PO DAILY tab 06/11/17 05/18/20 magnesium oxide 250 mg PO DAILY 04/26/18 05/18/20 hydrocodone-acetaminophen 1 tab-cap PO Q4H PRN tab-cap MDD 5 05/06/18 05/18/20 aspirin 81 mg PO DAILY 11/12/18 05/18/20 Custom Manjula Brace #1 ea 08/06/19 08/06/19 fluoxetine 40 mg PO DAILY 05/18/20 05/18/20 Previous Rx's Medication Instructions Recorded spironolactone 25 mg PO DAILY tab 06/11/17 Custom [place] Brace #1 ea 08/06/19 Allergies Allergy/AdvReac Type Severity Reaction Status Date / Time latex Allergy Severe SWELLING/RA Verified 05/18/20 14:01 SH bupropion Allergy Unknown Verified 05/18/20 14:01 sertraline HCl [From Zoloft] Allergy Unknown Verified 05/18/20 14:01 tramadol Allergy Unknown Verified 05/18/20 14:01 alendronate sodium AdvReac Intermediate Verified 05/18/20 14:01 Sulfa (Sulfonamide AdvReac Intermediate STOMACH Verified 05/18/20 14:01 Antibiotics) UPSET citalopram hydrobromide AdvReac Mild Verified 05/18/20 14:01 [From Celexa] flunisolide AdvReac Mild Verified 05/18/20 14:01 sulfasalazine AdvReac Mild Verified 05/18/20 14:01 [From Azulfidine] DAIRY PRODUCT AdvReac Intermediate STOMACH Uncoded 05/18/20 14:01 UPSET General Stated Complaint: Orthopedic EVONNE: 3 Review of Systems Narrative: Constitutional: Negative for weight loss, alert and oriented, well groomed, normal body habitus, appears comfortable. Reports frequent falls. HEENT: Denies trauma, headaches, blurry vision, nasal discharge, sore throat, trouble swallowing. Chest: Denies chest pain, palpitations, irregular rhythm, hypertension. Respiratory: Denies Shortness of breath, cough, hemoptysis. GI: Denies abdominal pain, nausea, vomiting, diarrhea, constipation. : Denies dysuria, hematuria, flank pain, rectal bleeding. Musculoskeletal: Complaining of right rib cage tenderness, right hip pain has areas multiple ecchymosis noted and contusions Neuro: Denies dizziness, blurry vision, weakness, syncope, headache or facial numbness. Hematologic: Denies , intolerance to heat or cold, hair loss. [facility] Medical History Actinic keratoses Alcohol abuse, in remission Atrial paroxysmal tachycardia Bilateral cataracts Bilateral leg edema BREAST CANCER RIGHT BREAST IMPLANTS BILATERAL Calcium pyrophosphate deposition disease CKD (chronic kidney disease), stage III DENTURES Depressive disorder Fatigue Frequent PVCs GERD (gastroesophageal reflux disease) Glossodynia History of colitis Hot flashes HTN (hypertension) HX: breast cancer Hypomagnesemia IBS (irritable colon syndrome) Insomnia Left knee pain detention systemic steroid user Lumbar back pain Melanosis coli Osteoarthritis Osteopenia Paresthesia Rheumatoid arthritis RLS (restless legs syndrome) Sciatica Ulcerative colitis Urinary incontinence USES A WALKER Surgical History Abdominal hysterectomy BACK SURGERY x 2 Breast, Mastectomy right, with implant Colonoscopy - MAC (11/26/09) Replacement of total knee joint left RIGHT FOOT SURGERY Family History Mother Parkinson's disease Father Personal history of malignant neoplasm LUNG Sister No problems noted. Brother No problems noted. Social History Smoking/Tobacco Use Status: Never Alcohol Intake: current Alcohol Intake frequency: 0-2 drinks per day Alcohol type: wine Drug use: Never Substance use type: does not use Current gender identity: female Do you feel safe at home: Yes Do you feel safe in your relationship?: Yes Exam Narrative Exam Narrative: Exam Narrative Exam Narrative: Constitutional: Alert and oriented x3. Appears stated age. Normal body habitus. Head: Normocephalic, no trauma. Eyes: Pupils PERRLA, Red reflex noted, EOM's intact. Eyelids symmetrical without lesions, discharge, or swelling. ENT: Bilateral TM's WNL, External ear normal to inspection, no mastoid TTP, swelling, or erythema, Nasal turbinates WNL, no nasal discharge. Normal dentition, Posterior pharynx WNL, no exudate. Chest: RRR, Normal S1, S2, distal pulses intact. Resp: Lungs clear to auscultation bilaterally, no wheezes, rales, or rhonchi. Musculoskeletal: Does have full range of motion noted to her hip, tenderness with weightbearing. She has ecchymosis to right hipced laterally, does have some right flank pain with palpation and ecchymosis. Skin: No suspicious rashes or lesions. Capillary refill less than 2 sec. Neurologic: Cranial nerves II-XII intact. Alert and oriented x 3. DTR's intact. Hematologic/Lymphatic: No ecchymosis, no lymphadenopathy. Skin Full body images: 1. Ecchymosis 2. Ecchymosis 3. Hematoma 4. Superficial skin tear 5. Contusion Course Vital Signs Vital signs: Vital Signs Temperature 36.9 C 05/18/20 13:57 Pulse 88 05/18/20 13:57 Respiratory Rate 16 05/18/20 13:57 Blood Pressure 143/61 H 05/18/20 13:57 Pulse Oximetry 98 05/18/20 13:57 Temperature 36.9 C 05/18/20 13:57 Temperature Source Tympanic 05/18/20 13:57 Pulse 88 05/18/20 13:57 Respiratory Rate 16 05/18/20 13:57 Respiratory Effort 05/18/20 14:13 Blood Pressure 143/61 H 05/18/20 13:57 Blood Pressure Position Sitting 05/18/20 13:57 Pulse Oximetry 98 05/18/20 13:57 Oxygen Delivery Method Room Air 05/18/20 13:57 Oxygen Flow Rate 0 05/18/20 13:57 Pain Level 8 05/18/20 13:57
[2020-05-18 17:03] VITALS: BP 139/75; PULSE 83; RESP 18; TEMP 36.5; O2SAT 99
[2020-05-18 17:20] VITALS: BP 139/75; PULSE 83; RESP 18; TEMP 36.5; O2SAT 99
== END 2020-05-18 17:10 | disposition home or self-care (01) ==
PROVIDERS: Emergency Provider Registered Nurse Emergency; PCP Internal Medicine
DX: S32.591A Other specified fracture of right pubis, initial encounter for closed fracture (principal); S32.511A Fracture of superior rim of right pubis, initial encounter for closed fracture; S22.31XA Fracture of one rib, right side, initial encounter for closed fracture; W18.00XA Striking against unspecified object with subsequent fall, initial encounter; I12.9 Hypertensive chronic kidney disease with stage 1 through stage 4 chronic kidney disease, or unspecified chronic kidney disease; N18.3 Chronic kidney disease, stage 3 (moderate); R29.6 Repeated falls; F10.10 Alcohol abuse, uncomplicated
CPT/HCPCS: 80053; 99284; 71046; 71100; 73502; 73590; 85025

== ENCOUNTER → 2020-06-04 09:34 | Outpatient (BNVA) | payer MEDICARE, OTHER, SELFPAY | PROVIDERS: PCP Internal Medicine; Referring Provider Student in an Organized Health Care Education/Training Program; Visit Provider Student in an Organized Health Care Education/Training Program | DX: S32.810A Multiple fractures of pelvis with stable disruption of pelvic ring, initial encounter for closed fracture (principal); W19.XXXA Unspecified fall, initial encounter; I12.9 Hypertensive chronic kidney disease with stage 1 through stage 4 chronic kidney disease, or unspecified chronic kidney disease; N18.3 Chronic kidney disease, stage 3 (moderate) | CPT/HCPCS: 99214 ==

== ENCOUNTER 2020-06-25 05:39 | Outpatient (RCR) | payer MEDICARE, OTHER, SELFPAY ==
[2020-06-25 11:02] LABS: Abs Immature Grans 0.09 10^3/uL (0.0-0.06); Absolute Lymphocyte Count 1.52 10^3/uL (1.2-3.4); Basophils % 0.5; Eosinophils % 1.4; HCT 43.8 % (36.0-46.0); HGB 13.8 g/dL (11.2-15.7); Immature Grans % 0.6; Lymphocytes % 9.9; MCH 29.7 pg (27.0-33.0); MCHC 31.5 % (32.0-36.0); MCV 94.4 fL (80-95); MPV 8.7 fL (8.0-11.0); Monocytes % 4.4; Neutrophils % 83.2; Nucleated RBC 0 %; Platelet Count 358 10^3/uL (130-400); RBC 4.64 10^6/uL (3.93-5.22); RDW 12.6 % (11.7-14.6); RDW-SD 43.8 fL; WBC 15.35 10^3/uL (4.4-10.8)
[2020-06-25 11:06] LABS: Absolute Basophil Count 0.08 10^3/uL (0.0-0.2); Absolute Eosinophil Count 0.21 10^3/uL (0.0-0.7); Absolute Monocyte Count 0.68 10^3/uL (0.1-0.8); Absolute Neutrophil Count 12.77 10^3/uL (1.2-6.7)
[2020-06-25 11:19] LABS: ALT 14 U/L (14-59); AST 14 U/L (15-37); Albumin 3.2 g/dL (3.4-5.0); Alkaline Phosphatase 341 U/L (46-116); Anion Gap 10.8 mmol/L (3-11); BUN 16 mg/dL (7-18); Bilirubin, Total 0.5 mg/dL (0.2-1.0); C-Reactive Protein 1.29 mg/dL (0.0-0.3); CO2 26.2 mmol/L (21.0-32.0); CREATININE 1.37 mg/dL (0.55-1.02); Calcium 8.8 mg/dL (8.5-10.1); Chloride 102 mmol/L (98-107); Estimated GFR 37.29 (mL/min/1.73m2); Glucose 98 mg/dL (74-106); Potassium 3.5 mmol/L (3.5-5.1); Sodium 139 mmol/L (136-145)
[2020-06-25] MEDS: ABATACEPT 750 MG in Normal Saline 100 ML 200 MG IVPB (11:54)
[2020-06-25] MEDS: Normal Saline Flush 10 ML SYR IVP (11:55)
== END 2020-07-17 23:59 | disposition home or self-care (01) ==
LOC: INF 05:39
PROVIDERS: PCP Internal Medicine; Visit Provider Family Medicine
DX: M06.9 Rheumatoid arthritis, unspecified (principal)
CPT/HCPCS: 36415; 80053; 96365; 85025; 86140; J0129

== ENCOUNTER 2020-07-05 15:40 | Outpatient (CLI) | payer MEDICARE, OTHER, SELFPAY ==
--- NOTE | 2020-07-05 13:30 | DI.RAD_ITS ---
EXAM: XR PELVIS AP INDICATION: pelvic fx. COMPARISON: CR,XR XR HIP RT COMPLETE AP PELVIS from 05/18/2020 TECHNIQUE: 2D digital imaging was performed. FINDINGS: There has been no change in the alignment of the right pubic ramus fractures. There is increased jaswinder diana formation when compared the previous exam. The bones appear osteoporotic. Moderate degenerative changes are noted in the hips. DATA REPOSITORY: RADIATION DOSE DELIVERED:
== END 2020-07-05 16:00 ==
PROVIDERS: PCP Internal Medicine; Referring Provider Internal Medicine; Visit Provider Student in an Organized Health Care Education/Training Program
DX: S32.591D Other specified fracture of right pubis, subsequent encounter for fracture with routine healing (principal); M16.0 Bilateral primary osteoarthritis of hip; X58.XXXD Exposure to other specified factors, subsequent encounter; I12.9 Hypertensive chronic kidney disease with stage 1 through stage 4 chronic kidney disease, or unspecified chronic kidney disease; N18.30 Chronic kidney disease, stage 3 unspecified
CPT/HCPCS: 99213; 72170

== ENCOUNTER 2020-07-23 05:07 | Outpatient (RCR) | payer MEDICARE, OTHER, SELFPAY ==
[2020-07-23] MEDS: Acetaminophen 325 MG TAB 650 MG PO (10:56)
[2020-07-23] MEDS: Normal Saline Flush 10 ML SYR IVP (10:57)
[2020-07-23] MEDS: ABATACEPT 750 MG in Normal Saline 100 ML 200 MG IVPB (11:37)
== END 2020-08-16 23:59 | disposition home or self-care (01) ==
LOC: INF 05:07
PROVIDERS: PCP Internal Medicine; Visit Provider Family Medicine
DX: M06.9 Rheumatoid arthritis, unspecified (principal)
CPT/HCPCS: 96365; J0129

== ENCOUNTER 2020-08-18 02:51 | Outpatient (RCR) | payer MEDICARE, OTHER, SELFPAY ==
[2020-08-18 13:30] LABS: Abs Immature Grans 0.03 10^3/uL (0.0-0.06); Absolute Basophil Count 0.02 10^3/uL (0.0-0.2); Absolute Eosinophil Count 0.03 10^3/uL (0.0-0.7); Absolute Monocyte Count 0.27 10^3/uL (0.1-0.8); Absolute Neutrophil Count 5.65 10^3/uL (1.2-6.7); Basophils % 0.3; Eosinophils % 0.4; HCT 37.3 % (36.0-46.0); HGB 11.5 g/dL (11.2-15.7); Immature Grans % 0.4; Lymphocytes % 10.4; MCH 28.3 pg (27.0-33.0); MCHC 30.8 % (32.0-36.0); MCV 91.9 fL (80-95); MPV 9.4 fL (8.0-11.0); Neutrophils % 84.5; Nucleated RBC 0 %; Platelet Count 262 10^3/uL (130-400); RBC 4.06 10^6/uL (3.93-5.22); RDW 14.3 % (11.7-14.6); RDW-SD 48.1 fL
[2020-08-18] MEDS: ABATACEPT 750 MG in Normal Saline 100 ML 200 MG IVPB (13:43)
[2020-08-18] MEDS: Normal Saline Flush 10 ML SYR IVP (13:43)
[2020-08-18 13:45] LABS: ALT 14 U/L (14-59); AST 14 U/L (15-37); Albumin 3.2 g/dL (3.4-5.0); Alkaline Phosphatase 102 U/L (46-116); Anion Gap 8.2 mmol/L (3-11); BUN 18 mg/dL (7-18); Bilirubin, Total 0.5 mg/dL (0.2-1.0); C-Reactive Protein 3.38 mg/dL (0.0-0.3); CO2 26.8 mmol/L (21.0-32.0); CREATININE 1.32 mg/dL (0.55-1.02); Calcium 8.3 mg/dL (8.5-10.1); Chloride 105 mmol/L (98-107); Estimated GFR 38.92 (mL/min/1.73m2); Glucose 119 mg/dL (74-106); Potassium 4.2 mmol/L (3.5-5.1); Sodium 140 mmol/L (136-145); Total Protein 6.7 g/dL (6.4-8.2)
== END 2020-09-14 23:59 | disposition home or self-care (01) ==
LOC: INF 02:51
PROVIDERS: Internal Medicine; PCP Internal Medicine; Visit Provider Family Medicine
DX: M06.9 Rheumatoid arthritis, unspecified (principal)
CPT/HCPCS: 36415; 80053; 96365; 85025; 86140; J0129